=== PATIENT | male | born 1925 | race Caucasian/White ===

== ENCOUNTER 2016-12-23 18:20 | Inpatient (IN) | payer MEDICARE, BC ==
[~2016-12-23] VITALS: Ht 165.1 cm; Wt 45.5 kg
[~2016-12-23 18:20] MED LIST: ALBU8.5H3 INH; FINA5TAB2 PO; METO50TA5 PO; ONDA4TAB4 PO; OXYC15TA50 PO; TAMS-1 PO
[2016-12-23 18:37] VITALS: Ht 165.1 cm; Wt 45.5 kg
--- OUTSIDE RECORDS SUMMARY | 2016-12-23 18:43 | XMS REPORT | CCD ---
Author Author LYLY POP Organization Unknown Address [address], [place] [id number] Phone 0 Care Team Providers Care Marketing Data Specialist Name Role Phone ELVIRA QUINN Attending Physician [phone] TIFFANY Ibarra Nurse Assisstant 0 Vital Signs Unknown or Not Available. Allergies Allergy Code Allergy Type Reaction Status HYDROCHLOROTHIAZIDE 5487 Drug allergy Active NORFLEX 414176 Drug allergy Active LEVAQUIN LEVA-ETHEL 0 Drug allergy Active INFLUENZA VIRUS VACCINE 5806 Drug allergy Active VALACYCLOVIR 85579 Drug allergy Active PENICILLIN 86775 Drug allergy HIVES Active DOXYCYCLINE 3640 Drug allergy Active Procedures Unknown or Not Available. 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 Active Medications Medication Code Dose Units Frequency Route Modification Start Date/Time Albuterol Sulfate 0.083% Inhalation Solution 021095 1 EACH every 4 hrs as needed INHALATION 2015 14:25 Prescription Detail 1 EACH INHALATION every 4 hrs as needed Calcitriol 0.25MCG Oral Capsule, Liquid Filled 615453 0.25 MCG DAILY ORAL 02/05/2016 14:25 Prescription Detail 0.25 MCG ORAL DAILY Calcium Acetate 667 MG Oral Tablet 184448 7377 MG 3 TIMES DAILY WITH MEALS ORAL 02/05/2016 14:25 Prescription Detail 1334 MG ORAL 3 TIMES DAILY WITH MEALS Cyanocobalamin 1000MCG/1ML Intramuscular Solution 937678 1 EACH Q 30 DAYS, NEXT DUE 02/07/16 INTRAMUSCULAR 02/05/2016 14:25 Prescription Detail 1 EACH INTRAMUSCULAR Q 30 DAYS, NEXT DUE 02/07/16 Famotidine 10MG Oral Tablet 575808 10 MILLIGRAMS AT BEDTIME ORAL 02/05/2016 14:25 Prescription Detail 10 MILLIGRAMS ORAL AT BEDTIME Flomax 0.4MG Oral Capsule 523802 0.4 MILLIGRAMS DAILY AFTER DINNER ORAL 02/05/2016 14:25 Prescription Detail 0.4 MILLIGRAMS ORAL DAILY AFTER DINNER hydrALAZINE HCl 25MG Oral Tablet 573696 25 MILLIGRAMS THREE TIMES DAILY ORAL 02/05/2016 14:25 Prescription Detail 25 MILLIGRAMS ORAL THREE TIMES DAILY Ipratropium [place]-Albuterol Sulfate 0.5MG/3ML-3MG/3ML Inhalation Solution 4404968 1 EACH EVERY 4 HRS NEEDED INHALATION 02/05/2016 14:25 Prescription Detail 1 EACH INHALATION EVERY 4 HRS NEEDED Metoprolol Tartrate 50MG Oral Tablet 427496 50 MILLIGRAMS TWICE A DAY ORAL 02/05/2016 14:25 Prescription Detail 50 MILLIGRAMS ORAL TWICE A DAY Proscar 5MG Oral Tablet 437958 5 MILLIGRAMS AT BEDTIME ORAL 02/05/2016 14:25 Prescription Detail 5 MILLIGRAMS ORAL AT BEDTIME Senokot 8.6MG Oral Tablet 242523 8.6 MILLIGRAMS NEEDED ORAL 02/05/2016 14:25 Prescription Detail 8.6 MILLIGRAMS ORAL NEEDED Uloric 40MG Oral Tablet 004177 40 MILLIGRAMS DAILY ORAL 02/05/2016 14:25 Prescription Detail 40 MILLIGRAMS ORAL DAILY Acetaminophen 500MG Oral Tablet 691153 500 MILLIGRAMS EVERY FOUR HOURS NEEDED BY MOUTH For Pain 14:20 Prescription Detail TAKE 500 MILLIGRAMS BY MOUTH EVERY FOUR HOURS NEEDED For Pain amLODIPine Besylate 5MG Oral Tablet 722066 10 MILLIGRAMS QD BY MOUTH 02/05/2016 14:18 Prescription Detail TAKE 10 MILLIGRAMS BY MOUTH QD GaviLAX 17GM/1Dose Oral Powder for Solution 484495 17 GRAM QD ORAL 02/05/2016 14:18 Prescription Detail 17 GRAM ORAL QD K-Tab 10MEQ Oral Tablet, Extended Release 642116 10 MILLIEQUIVALENT DAILY BY MOUTH 02/05/2016 14:17 Prescription Detail TAKE 10 MILLIEQUIVALENT BY MOUTH DAILY Magnesium Oxide 400MG Oral Tablet 231553 400 MILLIGRAMS TWICE A DAY BY MOUTH 02/05/2016 14:17 Prescription Detail TAKE 400 MILLIGRAMS BY MOUTH TWICE A DAY Nitrostat 0.4MG Sublingual Tablet 001665 0.4 MILLIGRAMS NEEDED SUBLINGUAL 02/05/2016 14:[address] 0.4 MILLIGRAMS SUBLINGUAL NEEDED Zofran 4MG Oral Tablet, Disintegrating 728783 4 TABLET PRN Q6H BY MOUTH 02/05/2016 14:17 Prescription Detail TAKE 4 TABLET BY MOUTH PRN Q6H Symbicort 80MCG/Actuation-4.5M Inhalation Aerosol Liquid 7187833 2 Puffs TWICE A DAY Inhale 2012 10:02 Prescription Detail Inhale 2 Puffs Inhale TWICE A DAY Medications Administered During Visit Unknown or Not Available. Encounters Unknown or Not Available. Social History Smoking Status Code Start Date End Date Former smoker 0210253 Patient Decision Aids Unknown or Not Available. Discharge Instructions You were admitted to [facility] on 11/29/2016 13:52 You were discharged from [facility] Should you have any questions prior to discharge, please contact a member of your healthcare team. If you have left the hospital and have any questions, please contact your primary care physician. Chief Complaint and Reason For Visit Chief Complaint Date of Onset RECURRING OP 11/29/2016 Function Status Unknown or Not Available. Plan of Care Unknown or Not Available. Referral/Transition of Care Unknown or Not Available.
--- OUTSIDE RECORDS SUMMARY | 2016-12-23 18:43 | XMS REPORT | Continuity of Care Document ---
Author Author [facility] Organization [facility] Address Unknown Phone Unavailable Support Name Relationship Address Phone JUNO HERNANDEZ MD Caregiver [address] [place] [address] [place] [address] Unavailable WALLY RODRIGUEZ "MAI" Caregiver [address] [place] [address] Unavailable BERNARD VALENZUELA Next Of Kin [address] [place] [address] Insurance Providers Guarantor Carolyn Valenzuela Address [address] [place] [address] Email DENIED/NO TO PT PORTAL [facility] Policy Number [id number] Subscriber's Name BiancaCarolyn Mu Relationship 18 Self Group Number [id number] Payer Medicare Policy Number [id number] Subscriber's Name BiancaCarolyn Dobbins Relationship 18 Self Advance Directives Directive Response Recorded Date/Time Ordered Resuscitation Status Full Code 09/30/16 3:55pm Resuscitation Documents on File No 10/01/16 8:53am DPOA for Healthcare Only No 10/01/16 8:53am Living Will No 10/01/16 8:53am Problems Active Problems Medical Problem Onset Date Status Gross hematuria 01/11/2015 Acute Renal mass 01/11/2015 Acute Medications Current Home Medications Medication Dose Units Route Directions Days Qty Instructions Start Date Albuterol Sulfate 2.5 Mg/3 Ml Vial.neb 2.5 Mg Aerosol Tx. As Needed for Asthma 01/09/15 Albuterol Sulfate (Albuterol Sulfate Hfa) 8.5 Gm Hfa.aer.ad 2 Puff Inhalation Every 4 Hours 01/09/15 Amlodipine Besylate (Norvasc) 10 Mg Tablet 10 Mg Oral Daily 09/30 Budesonide/Formoterol Fumarate (Symbicort 160-4.5 Mcg Inhaler) 10.2 Gm Hfa.aer.ad 2 Puff Oral Twice A Day 01/09/15 Famotidine 10 Mg Tablet 1 Tab Oral Bedtime 09/30/16 Finasteride (Proscar) 5 Mg Tablet 1 Tab Oral Daily 09/30/16 Metoprolol Tartrate 50 Mg Tablet 50 Mg Oral Twice Daily With Meals Take 1 tablet, by mouth, 2 times a day with meals. 09/30/16 Ondansetron Hcl (Zofran) 4 Mg Tablet 4 Mg Oral Every 8 Hours Oxycodone Hcl (Oxycontin) 10 Mg Tab.er.12h 10 Mg Oral Three Times A Day 09/30/16 Oxycodone Hcl 15 Mg Tablet 15 Mg Oral Every 4 Hours Prn 09/30/16 Tamsulosin Hcl (Flomax) 0.4 Mg Capsule 0.4 Mg Oral Bedtime Past Home Medications Medication Directions Ordered Status Aspirin (Aspir 81) 81 Mg Tablet., 1 Tab Oral Daily 01/09/15 Discontinued Social History Social History Problem Response Recorded Date/Time Onset Date Status Reason for Hospitalization place a port 10/01/2016 11:42am Not Applicable Not Applicable Hx Alcohol Use No 10/01/2016 8:55am Not Applicable Not Applicable Has the pt used tobacco in the last 12 months No 10/01/2016 8:55am Not Applicable Not Applicable Query Response Start Date Stop Date Smoking Status Former smoker Hospital Discharge Instructions Instructions: Care Instructions: I was in the hospital because (patient own words): PORT PLACEMENT Discharge Diet: Resume Regular diet (See patient instructions below) Discharge Activity: You may resume your usual activity. Follow Up Appointments: Follow up with Oncology as scheduled. - You do not need a specific appointment to see Dr. Hernandez since oncology will be following your Port-a-Cath. - You may call Dr. Hernandez's office at [phone] if you have any concerns. Pending Lab / Results: No Pending Lab Patient Instructions: Do not drive, operate machinery, drink alcohol, or sign important papers for 24 hours or while taking pain pills. You may resume your usual diet. Start with a bland diet in case you have nausea or vomiting. Expected Signs/Symptoms: Expect some pain at your incision sites. You may have some nausea/vomiting after your anesthetic or with pain pills taken on an empty stomach. Notify Physician If: Contact Dr. Hernandez if any of the following occur: - Your pain is not adequately controlled. - You have persistent nausea or vomiting for more than 24 hours. - You have a fever over 101 degrees. - You develop redness, swelling, increasing pain, excessive bleeding, or excessive/foul smelling drainage from one of your incision sites. - You have pain and/or swelling in your feet, calves, or legs. - You have difficulty breathing, abnormal cough, or chest pain. During Business Hours:: *In the event of an emergency, call 911 or seek medical care at the nearest emergency room* During office hours, call Dr. Hernandez's office at [phone]. After Business Hours:: After hours, please call [facility] at [phone] and have the vulcanized fiber unit operator page Dr. Hernandez or the covering surgeon. Pain Management/Treatment: You should not have significant pain following the procedure. For management of your postoperative pain consider the following: - You may take Ibuprofen IN ADDITION TO Tylenol or pain pills for up to 2 weeks unless otherwise instructed by a physician. - You may take regular strength Tylenol (325 mg) INSTEAD OF any pain pill dose. (No more than 10 tablets including pain pills and regular strength Tylenol in a 24 hour period). Wound/Incision Care: Your incisions have been covered with sterile glue. - No bandage is required. - You may shower after 24 hours. - No tub baths or swimming for 2 weeks. Condition at time of discharge: Good Plan of Care Discharge Date 10/01/16 1:20pm Instructions/Education Provided [facility] for Implanted Venous Access Port Prescriptions See Medication Section Functional Status No functional status results. Allergies, Adverse Reactions, Alerts Allergen Type Severity Reaction Status Last Updated Penicillin Allergy Unknown Active 09/30/16 Alprazolam Allergy Unknown Active 09/30/16 Orphenadrine Allergy Unknown Active 09/30/16 Doxycycline Allergy Unknown Active 09/30/16 Valacyclovir Allergy Unknown Active 09/30/16 flu shot Allergy Unknown Active 01/08/15 Immunizations Query Response on File Recorded Date/Time Hx Influenza Vaccination N refused 10/01/16 8:55am Hx Pneumococcal Vaccination Y 5-6 yrs ago 10/01/16 8:55am Hx Influenza Vaccination N refused 10/01/16 8:55am Vital Signs Acute Vital Signs Vital Response Date/Time Temperature (Fahrenheit) 98.7 deg F (96.8 - 99.1) 10/01/2016 12:00pm Temperature (Calculated Celsius) 37.14752 degrees C (36.0 - 37.3) 10/01/2016 12:00pm Temperature Source Oral 10/01/2016 12:00pm Pulse Rate (adult) 74 bpm (60 - 100) 10/01/2016 1:15pm Respiratory Rate 20 breaths/min (10 - 20) 10/01/2016 1:15pm O2 Sat by Pulse Oximetry 95 % (90 - 100) 10/01/2016 1:15pm Oxygen Delivery Method Room Air 10/01/2016 1:15pm Oxygen Flow Rate 6.00 L/min 10/01/2016 11:24am Blood Pressure 113/57 mm Hg 10/01/2016 1:15pm Blood Pressure Source Automatic Cuff 10/01/2016 1:15pm Height (Feet) 5 feet 10/01/2016 8:32am Height (Inches) 5.00 inches 10/01/2016 8:32am Weight (Kilograms) 54.500 kg 10/01/2016 8:32am Body Mass Index (BMI) 20.0 10/01/2016 8:32am Results Laboratory Results Test Name Result Units Flags Reference Collection Date/Time Result Date/ Time Comments White Blood Count 9.7 T/MM3 4.5-11.0 09/29/2016 8:45am 09/29/2016 8: 50am Red Blood Count 3.55 M/MM3 L 4.50-5.90 09/29/2016 8:45am 09/29/2016 8: 50am Hemoglobin 10.6 GM/DL L 13.5-17.5 09/29/2016 8:45am 09/29/2016 8:50am Hematocrit 33.6 % L 41-53 09/29/2016 8:45am 09/29/2016 8:50am Mean Corpuscular Volume 94.6 UM3 80-100 09/29/2016 8:45am 09/29/2016 8: 50am Mean Corpuscular Hemoglobin 29.9 UUG 26-34 09/29/2016 8:45am 2015 8:50am Mean Corpuscular Hemoglobin Concent 31.5 GM/DL 31-37 09/29/2016 8:45am 09/29/2016 8:50am RDW Standard Deviation 47.0 FL 36.9-50.2 09/29/2016 8:45am 09/29/2016 8 :50am Platelet Count 412 T/MM3 H 130-400 09/29/2016 8:45am 09/29/2016 8:50am Mean Platelet Volume 8.7 UM3 L 9.4-12.4 09/29/2016 8:45am 09/29/2016 8: 50am Neutrophils (%) (Auto) 57.7 % 33-66 09/29/2016 8:45am 09/29/2016 8: 50am Lymphocytes (%) (Auto) 29.4 % 23-45 09/29/2016 8:45am 09/29/2016 8: 50am Monocytes (%) (Auto) 10.3 % H 0-9.0 09/29/2016 8:45am 09/29/2016 8:50am Eosinophils (%) (Auto) 2.0 % 0-4 09/29/2016 8:45am 09/29/2016 8:50am Basophils (%) (Auto) 0.4 % 0-2 09/29/2016 8:45am 09/29/2016 8:50am Immature Granulocyte % (Auto) 0.2 % 0.0-0.5 09/29/2016 8:45am 2015 8:50am Absolute Neutrophils (auto) 5.6 T/MM3 1.8-7.7 09/29/2016 8:45am 2015 8:50am Absolute Lymphocytes (auto) 2.9 T/MM3 1-4.8 09/29/2016 8:45am 2015 8:50am Absolute Monocytes (auto) 1.0 T/MM3 H 0-0.8 09/29/2016 8:45am 2015 8:50am Absolute Eosinophils (auto) 0.2 T/MM3 0-0.5 09/29/2016 8:45am 2015 8:50am Absolute Basophils (auto) 0.0 T/MM3 0-0.2 09/29/2016 8:45am 09/29/2016 8:50am Absolute Immature Granulocyte (auto 0.02 T/MM3 0.00-0.03 09/29/2016 8: 45am 09/29/2016 8:50am Lactate Dehydrogenase 350 U/L 313-618 09/29/2016 8:45am 09/29/2016 9: 38am Magnesium Level 2.1 MG/DL 1.6-2.3 09/29/2016 8:45am 09/29/2016 9:38am Icterus Index < 2 0-7 10/01/2016 8:44am 10/01/2016 9:00am Chemistry Specimen Hemolysis < 15 0-25 10/01/2016 8:44am 10/01/2016 9 :00am 0-25: Specimen Exhibited No Hemolysis. Turbidity < 20 0-20 10/01/2016 8:44am 10/01/2016 9:00am Sodium Level 141 MEQ/L 134-144 10/01/2016 8:44am 10/01/2016 9:00am Potassium Level 3.2 MEQ/L L 3.6-5 10/01/2016 8:44am 10/01/2016 9:00am Chloride Level 99 MEQ/L 98-107 10/01/2016 8:44am 10/01/2016 9:00am Carbon Dioxide Level 27 MEQ/L 22-30 10/01/2016 8:44am 10/01/2016 9: 00am Anion Gap 15 MEQ/L 5-15 10/01/2016 8:44am 10/01/2016 9:00am Blood Urea Nitrogen 16.0 MG/DL 9-10/01/2016 8:44am 10/01/2016 9: 00am Creatinine 1.1 MG/DL 0.8-1.5 10/01/2016 8:44am 10/01/2016 9:00am BUN/Creatinine Ratio 15 RATIO 6-26 10/01/2016 8:44am 10/01/2016 9:00am Glomerular Filtration Rate Calc 63 10/01/2016 8:44am 10/01/2016 9: 00am Glucose Level 95 MG/DL 75-110 10/01/2016 8:44am 10/01/2016 9:00am Calculated Osmolality 272 MOSM/KG 261-280 10/01/2016 8:44am 10/01/2016 9:00am Calcium Level 8.2 MG/DL L 8.4-10.2 10/01/2016 8:44am 10/01/2016 9:00am Total Bilirubin 0.50 MG/DL 0.20-1.30 10/01/2016 8:44am 10/01/2016 9: 00am Alkaline Phosphatase 65 U/L 38-126 10/01/2016 8:44am 10/01/2016 9:00am Total Protein 6.4 G/DL 6.3-8.2 10/01/2016 8:44am 10/01/2016 9:00am Albumin 3.4 G/DL L 3.5-5.0 10/01/2016 8:44am 10/01/2016 9:00am Globulin 3.0 G/DL 2.4-3.6 10/01/2016 8:44am 10/01/2016 9:00am Albumin/Globulin Ratio 1.1 RATIO 1.1-2.2 10/01/2016 8:44am 10/01/2016 9 :00am Aspartate Amino Transf (AST/SGOT) 16 U/L L 17-59 10/01/2016 8:44am 10/01 9:00am Alanine Aminotransferase (ALT/SGPT) 27 U/L 21-72 10/01/2016 8:44am 9:00am Name: CAROLYN VALENZUELA Unit #: [id number] : 1925 Sex: M Admit Date: Loc / Svc: SCU Discharge Date: DIAGNOSTIC IMAGING REPORT Report #: [id number] [facility] NADJA Burnett Indication: ITS.REASON: POWERPORT INSERTION PROCEDURE: RF PORTACATH W FLUORO WO CXR: Encounter: Initial Comparison: No prior films were available for comparison at the time of this interpretation. A right-sided IJ Port-A-Cath was placed under fluoroscopic guidance. Fluoroscopy time was not indicated. Three fluoroscopic spot films were submitted for review. The distal tip of the Port-A-Cath appears to be projected over the distal SVC on the fluoroscopic spot film submitted for review. Findings: Status post right-sided IJ Port-A-Cath placement under fluoroscopic guidance as described above. Recommend plain film follow-up to confirm satisfactory position. . Procedures Procedure Status Date Provider(s) ROUTINE VENIPUNCTURE Completed 09/01/16 COMPREHEN METABOLIC PANEL Completed 09/01/16 LACTATE (LD) (LDH) ENZYME Completed 09/01/16 ASSAY OF MAGNESIUM Completed 09/01/16 COMPLETE CBC W/AUTO DIFF WBC Completed 09/01/16 PET IMAGE W/CT SKULL-THIGH Completed 09/17/16 [id number]"FLUORODEOXYGLUCOSE F-18 FDG, DIAGNOSTIC, PER STUDY DO Completed ROUTINE VENIPUNCTURE Completed 09/22/16 COMPREHEN METABOLIC PANEL Completed 09/22/16 LACTATE (LD) (LDH) ENZYME Completed 09/22/16 ASSAY OF MAGNESIUM Completed 09/22/16 COMPLETE CBC W/AUTO DIFF WBC Completed 09/22/16 Insertion of vascular catheter Completed 10/01/16 JUNO HERNANDEZ MD Encounters Encounter Location Arrival/Admit Date Discharge/Depart Date Attending Provider Departed [facility] Day [facility] 10/01/16 8:18am 10/01/16 1: 20pm JUNO HERNANDEZ MD Registered [facility] 09/29/16 8:23am ELVIRA QUINN Registered [facility] 09/25/16 3:24pm FAVIAN STEWART MD Registered [facility] 09/22/16 2:59pm ELVIRA QUINN [facility] 09/17/16 7:17am ELVIRA QUINN [facility] 09/01/16 11:04am ELVIRA QUINN
--- OUTSIDE RECORDS SUMMARY | 2016-12-23 18:44 | XMS REPORT | Continuity of Care Document ---
Author Author [facility] Organization [facility] Address Unknown Phone Unavailable Allergies Active Description Code Type Severity Reaction Onset Reported/Identified Relationship to Patient Clinical Status Yes alprazolam alprazolam Drug Allergy Unknown N/A 09/05/2009 Yes Benzodiazepines Benzodiazepines Drug Allergy Unknown N/A 09/05/2009 Yes Betalactams Betalactams Drug Allergy Unknown N/A 09/05/2009 Yes Penicillins Penicillins Drug Allergy Unknown N/A 09/05/2009 Yes alprazolam alprazolam Drug Allergy Unknown NONE 01/25/2016 Yes Benzodiazepines Benzodiazepines Drug Allergy Unknown NONE 01/25/2016 Yes Betalactams Betalactams Drug Allergy Unknown NONE 01/25/2016 Yes Penicillins Penicillins Drug Allergy Unknown NONE 01/25/2016 Medications Problems Date Dx Coded Attending Type Code Diagnosis Diagnosed By 05/16/2015 LAKSHMI SEWELL 1890 MALIG NEOPL KIDNEY 05/16/2015 LAKSHMI SEWELL 2859 ANEMIA NOS 05/16/2015 LAKSHMI SEWELL 99298 ANXIETY STATE NOS 05/16/2015 LAKSHMI SEWELL 311 DEPRESSIVE DISORDER NEC 05/16/2015 LAKSHMI SEWELL 50521 ACUTE POSTOP PAIN NEC 05/16/2015 LAKSHMI SEWELL 4019 HYPERTENSION NOS 05/16/2015 LAKSHMI SEWELL 13191 CORONARY ATHEROSCLEROSIS 05/16/2015 LAKSHMI SEWELL 06993 ATRIAL FIBRILLATION 05/16/2015 LAKSHMI SEWELL 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 05/16/2015 LAKSHMI SEWELL 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 05/16/2015 LAKSHMI SEWELL 14795 HYPOXEMIA 01/21/2016 Yuniel Avelar DO C64.9 MALIGNANT NEOPLASM OF UNSP KIDNEY, EXCEPT RENAL PE 01/21/2016 Yuniel Avealr DO 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 WITHOUT 01/21/2016 Yuniel Avelar DO E83.39 OTHER DISORDERS OF PHOSPHORUS METABOLISM 01/21/2016 Yuniel Avelar DO E83.41 HYPERMAGNESEMIA 01/21/2016 Yuniel Avelar DO E87.2 ACIDOSIS 01/21/2016 Yuniel Avelar DO E87.5 HYPERKALEMIA 01/21/2016 Yuniel Avelar DO F05 DELIRIUM DUE TO KNOWN PHYSIOLOGICAL CONDITION 01/21/2016 Yuniel Avelar DO G93.41 METABOLIC ENCEPHALOPATHY 01/21/2016 Yuniel Avelar DO 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 01/21/2016 Yuniel Avelar DO 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 01/21/2016 Yuniel Avelar DO J44.9 CHRONIC OBSTRUCTIVE PULMONARY DISEASE, UNSPECIFIED 01/21/2016 Yuniel Avelar DO J96.01 ACUTE RESPIRATORY FAILURE WITH HYPOXIA 01/21/2016 Yuniel Avelar DO K21.9 GASTRO-ESOPHAGEAL REFLUX DISEASE WITHOUT ESOPHAGIT 01/21/2016 Yuniel Avelar DO 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 01/21/2016 Yuniel Avelar DO N17.0 ACUTE KIDNEY FAILURE WITH TUBULAR NECROSIS 01/21/2016 Yuniel Avelar DO N17.9 ACUTE KIDNEY FAILURE, UNSPECIFIED 01/21/2016 Yuniel Avelar DO N18.2 CHRONIC KIDNEY DISEASE, STAGE 2 (MILD) 01/21/2016 Yuinel Avelar DO 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 01/21/2016 Yuniel Avelar DO N40.0 ENLARGED PROSTATE WITHOUT LOWER URINARY TRACT SYMP 01/21/2016 Yuniel Avelar DO T50.8X5A ADVERSE EFFECT OF DIAGNOSTIC AGENTS, INITIAL ENCOU 01/21/2016 Yuniel Avelar DO Z66 DO NOT RESUSCITATE 01/21/2016 Yuniel Avelar DO Z87.891 PERSONAL HISTORY OF NICOTINE DEPENDENCE 01/21/2016 Yuniel Avelar DO Z88.0 ALLERGY STATUS TO PENICILLIN 09/18/2016 Helio BOWLING, Shashi Ash D64.9 ANEMIA, UNSPECIFIED 09/18/2016 Shashi Cadet MD I10 ESSENTIAL (PRIMARY) HYPERTENSION 09/18/2016 Shashi Cadet MD J44.9 CHRONIC OBSTRUCTIVE PULMONARY DISEASE, UNSPECIFIED 09/18/2016 Shashi Cadet MD J96.10 CHRONIC RESPIRATORY FAILURE, UNSP W HYPOXIA OR HYP 09/18/2016 Shashi Cadet MD K21.9 GASTRO-ESOPHAGEAL REFLUX DISEASE WITHOUT ESOPHAGIT 09/18/2016 Shashi Cadet MD K22.2 ESOPHAGEAL OBSTRUCTION 09/18/2016 Shashi Cadet MD K31.89 OTHER DISEASES OF STOMACH AND DUODENUM 09/18/2016 Shashi Cadet MD 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 09/18/2016 Shashi Cadet MD K83.8 OTHER SPECIFIED DISEASES OF BILIARY TRACT 09/18/2016 Shashi Cadet MD M48.00 SPINAL STENOSIS, SITE UNSPECIFIED 09/18/2016 Shashi Cadet MD N40.0 BENIGN PROSTATIC HYPERPLASIA WITHOUT LOWER URINRY 09/18/2016 Shashi Cadet MD R10.9 UNSPECIFIED ABDOMINAL PAIN 09/18/2016 Shashi Cadet MD Z85.528 PERSONAL HISTORY OF OTHER MALIGNANT NEOPLASM OF KI 09/18/2016 Shashi Cadet MD Z88.0 ALLERGY STATUS TO PENICILLIN 09/18/2016 Shashi Cadet MD Z88.8 ALLERGY STATUS TO OTH DRUG/MEDS/BIOL SUBST STATUS 09/18/2016 Shashi Cadet MD Z90.5 ACQUIRED ABSENCE OF KIDNEY Procedures Code Description [place] 05/03/2015 [id number] INSERTION OF ENDOTRACHEAL AIRWAY INTO TRACHEA, VIA Valentino LEONE, Yuniel A 01/21/2016 [id number] RESPIRATORY VENTILATION, LESS THAN 24 CONSECUTIVE Avelar DO, Yuniel A 01/21/2016 [id number] EXCISION OF DUODENUM, ENDO, DIAGN Tommy BOWLING, Chandler Iverson 09/18/2016 Results Test Result Range CBC W/DIFF - 01/21/16 00:00 EOSINOPHIL # 0.1 k/cumm 0.1-0.5 EOSINOPHIL % 1 % 2-4 GRANULOCYTE # 7.2 k/cumm 2.0-9.0 GRANULOCYTE % 59 % 50-75 LYMPHOCYTE # 3.5 k/cumm 1.0-4.0 LYMPHOCYTE % 29 % 20-30 MEAN CELL HGB 30.6 pg 27.0-33.0 MEAN CELL HGB CONCENTRATION 33.7 g/dL 32.0-37.0 MEAN CELL VOLUME 90.7 fl 80.0-100.0 MONOCYTE # 1.3 k/cumm 0.1-1.0 MONOCYTE % 11 % 4-6 RED BLOOD CELL 3.86 m/cumm 4.00-6.00 RED CELL DISTRIBUTION WIDTH 13.3 % 11.0- 15.6 WHITE BLOOD CELL 12.1 k/cumm 5.0-10.0 HEMOGLOBIN 11.8 gm/dL 14.0-18.0 HEMATOCRIT 35.0 % 40.0-54.0 PLATELET COUNT 432 k/cumm 150-400 METABOLIC PANEL, COMPREHN - 01/21/16 00:00 POTASSIUM 5.3 mmol/L 3.5-5.3 EST GFR (MDRD) < 10 mL/min > 59 ANION GAP 13 mmol/L 5-15 GLUCOSE 15 mg/dL 70-99 CALCIUM 8.3 mg/dL 8.5-10.1 BLOOD UREA NITROGEN 83 mg/dL 7-20 CREATININE 16.0 mg/dL 0.7-1.3 SODIUM 133 mmol/L 135-148 CHLORIDE 98 mmol/L 98-110 AST/SGOT 24 Units/L 10-37 ALT/SGPT 23 Units/L < 66 CARBON DIOXIDE 22 mmol/L 21-32 TOTAL PROTEIN 6.8 gm/dL 6.4-8.2 ALBUMIN 3.4 gm/dL 3.4-5.0 BILI TOTAL 0.4 mg/dL 0.0-1.0 ALKALINE PHOSPHATASE TOTAL 56 IU/L 45- 117 PHOSPHORUS - 01/21/16 00:00 PHOSPHORUS 8.0 mg/dL 2.5-4.9 MAGNESIUM - 01/21/16 00:00 MAGNESIUM 3.0 mg/dL 1.8-2.4 THYROID STIM HORMONE (TSH) - 01/21/16 00:00 THYROID STIM HORMONE (TSH) 1.78 uIU/mL 0.34-4.82 TROPONIN I - 01/21/16 00:00 TROPONIN I 0.50 ng/mL < 0.07 ARTERIAL BLOOD GAS - 01/21/16 21:10 ABG BASE EXCESS -7.3 meq/L -3.0-3.0 ABG BICARBONATE 17.9 meq/L 23.0-28.0 ABG PCO2 36 mm Hg 34-45 ABG PH 7.32 7.35-7.45 ABG PO2 108 mm Hg 75-100 ABG O2 SATURATION 98 % 93-100 CALCIUM IONIZED - 01/21/16 21:10 CALCIUM IONIZED 4.3 mg/dL 4.5-5.3 LACTIC ACID - 01/21/16 21:10 LACTIC ACID 1.0 mmol/L 0.5-2.0 GLUCOSE (POC) - 01/21/16 22:35 GLUCOSE (POC) 319 mg/dL 70-99 UR CREATININE - 01/22/16 01:04 UR CREATININE COMMENT RANDOM UR CREATININE LEVEL 53.8 mg/dL 44-467 UR SODIUM - 01/22/16 01:04 UR SODIUM COMMENT RANDOM UR SODIUM LEVEL 57 mmol/L 20-40 URINALYSIS, ROUTINE - 01/22/16 01:04 UA LEUKOCYTE ESTERASE DIPSTICK NEGATIVE NEGATIVE UA NITRITE DIPSTICK NEGATIVE NEGATIVE UA PROTEIN DIPSTICK TRACE NEGATIVE UA GLUCOSE DIPSTICK NEGATIVE NEGATIVE UA KETONE DIPSTICK NEGATIVE NEGATIVE UA UROBILINOGEN DIPSTICK NORMAL NORMAL UA BILIRUBIN DIPSTICK NEGATIVE NEGATIVE UA BLOOD DIPSTICK 4+ NEGATIVE UA SPECIFIC GRAVITY 1.007 1.015-1.025 UR PH 6.0 5.0-7.0 UA MICROSCOPIC - 01/22/16 01:04 UA AMORPHOUS SEDIMENT 2+ UA RBC 5-10 rbc/hpf 0 - 3 UA VOLUME FOR EXAM 12.0 mL (12mL STD) UA WBC 0 wbc/hpf 0 - 5 UR DRUGS OF ABUSE SCREEN - 01/22/16 01:04 UR AMPHETAMINES SCREEN NEG (<1000 ng/mL) NEGATIVE UR BARBITURATE SCREEN NEG (< 200 ng/mL) NEGATIVE DRUGS OF ABUSE SCREEN COMMENT UR OPIATES SCREEN NEG (< 300 ng/mL) NEGATIVE UR PHENCYCLIDINE (PCP) SCREEN NEG (< 25 ng/mL) NEGATIVE UR CANNABINOIDS (THC) SCREEN NEG (< 50 ng/mL) NEGATIVE UR COCAINE METABOLITE SCREEN NEG (< 300 ng/mL) NEGATIVE UR METHADONE SCREEN NEG (< 300 ng/mL) NEGATIVE UR BENZODIAZEPINE SCREEN NEG (< 200 ng/mL) NEGATIVE ARTERIAL BLOOD GAS - 01/22/16 02:53 ABG BASE EXCESS -8.0 meq/L -3.0-3.0 ABG FIO2 50 % ABG BICARBONATE 17.8 meq/L 23.0-28.0 ABG PCO2 38 mm Hg 34-45 ABG PEEP 5 CM ABG PH 7.29 7.35-7.45 ABG PO2 251 mm Hg 75-100 ABG O2 SATURATION 99 % 93-100 LACTIC ACID - 01/22/16 02:53 LACTIC ACID 1.3 mmol/L 0.5-2.0 CBC W/DIFF - 01/22/16 02:53 EOSINOPHIL # 0.1 k/cumm 0.1-0.5 EOSINOPHIL % 1 % 2-4 GRANULOCYTE # 8.5 k/cumm 2.0-9.0 GRANULOCYTE % 78 % 50-75 LYMPHOCYTE # 0.7 k/cumm 1.0-4.0 LYMPHOCYTE % 6 % 20-30 MEAN CELL HGB 31.0 pg 27.0-33.0 MEAN CELL HGB CONCENTRATION 34.1 g/dL 32.0-37.0 MEAN CELL VOLUME 90.8 fl 80.0-100.0 MONOCYTE # 1.7 k/cumm 0.1-1.0 MONOCYTE % 16 % 4-6 RED BLOOD CELL 3.26 m/cumm 4.00-6.00 RED CELL DISTRIBUTION WIDTH 13.1 % 11.0- 15.6 WHITE BLOOD CELL 10.9 k/cumm 5.0-10.0 HEMOGLOBIN 10.1 gm/dL 14.0-18.0 HEMATOCRIT 29.6 % 40.0-54.0 PLATELET COUNT 285 k/cumm 150-400 METABOLIC PANEL, COMPREHN - 01/22/16 02:54 POTASSIUM 5.1 mmol/L 3.5-5.3 EST GFR (MDRD) < 10 mL/min > 59 ANION GAP 18 mmol/L 5-15 EST CrCl (CG) < 10 mL/min > 59 GLUCOSE 60 mg/dL 70-99 CALCIUM 8.1 mg/dL 8.5-10.1 BLOOD UREA NITROGEN 86 mg/dL 7-20 CREATININE 16.0 mg/dL 0.7-1.3 SODIUM 134 mmol/L 135-148 CHLORIDE 98 mmol/L 98-110 AST/SGOT 21 Units/L 10-37 ALT/SGPT 19 Units/L < 66 CARBON DIOXIDE 18 mmol/L 21-32 TOTAL PROTEIN 5.7 gm/dL 6.4-8.2 ALBUMIN 2.7 gm/dL 3.4-5.0 BILI TOTAL 0.4 mg/dL 0.0-1.0 ALKALINE PHOSPHATASE TOTAL 49 IU/L 45- 117 CREATINE KINASE (CK/CPK) - 01/22/16 02:54 CREATINE KINASE (CK/CPK) 270 Units/L < 309 URIC ACID - 01/22/16 02:54 URIC ACID 9.7 mg/dL 3.5-7.2 GLUCOSE (POC) - 01/22/16 05:09 GLUCOSE (POC) 93 mg/dL 70-99 TROPONIN I - 01/22/16 07:49 TROPONIN I 0.43 ng/mL < 0.07 TRIGLYCERIDES - 01/22/16 07:49 TRIGLYCERIDES 48 mg/dL < 150 GLUCOSE (POC) - 01/22/16 07:52 GLUCOSE (POC) 112 mg/dL 70-99 ARTERIAL BLOOD GAS - 01/22/16 10:31 ABG BASE EXCESS -7.1 meq/L -3.0-3.0 ABG FIO2 30 % ABG BICARBONATE 15.5 meq/L 23.0-28.0 ABG PCO2 23 mm Hg 34-45 ABG PH 7.45 7.35-7.45 ABG PO2 140 mm Hg 75-100 ABG VENT RATE 20 ABG O2 SATURATION 98 % 93-100 ABG TEMPERATURE 36.4 C GLUCOSE (POC) - 01/22/16 10:33 GLUCOSE (POC) 110 mg/dL 70-99 TROPONIN I - 01/22/16 14:14 TROPONIN I 0.31 ng/mL < 0.07 TROPONIN I - 01/22/16 21:01 TROPONIN I 0.23 ng/mL < 0.07 GLUCOSE (POC) - 01/22/16 21:05 GLUCOSE (POC) 116 mg/dL 70-99 GLUCOSE (POC) - 01/23/16 03:27 GLUCOSE (POC) 116 mg/dL 70-99 CBC W/DIFF - 01/23/16 05:10 EOSINOPHIL # 0.1 k/cumm 0.1-0.5 EOSINOPHIL % 2 % 2-4 GRANULOCYTE # 5.8 k/cumm 2.0-9.0 GRANULOCYTE % 65 % 50-75 LYMPHOCYTE # 1.9 k/cumm 1.0-4.0 LYMPHOCYTE % 22 % 20-30 MEAN CELL HGB 30.5 pg 27.0-33.0 MEAN CELL HGB CONCENTRATION 33.7 g/dL 32.0-37.0 MEAN CELL VOLUME 90.7 fl 80.0-100.0 MONOCYTE # 1.0 k/cumm 0.1-1.0 MONOCYTE % 11 % 4-6 RED BLOOD CELL 3.44 m/cumm 4.00-6.00 RED CELL DISTRIBUTION WIDTH 13.5 % 11.0- 15.6 WHITE BLOOD CELL 8.8 k/cumm 5.0-10.0 HEMOGLOBIN 10.5 gm/dL 14.0-18.0 HEMATOCRIT 31.2 % 40.0-54.0 PLATELET COUNT 319 k/cumm 150-400 RENAL FUNCTION PANEL - 01/23/16 05:10 POTASSIUM 5.2 mmol/L 3.5-5.3 EST GFR (MDRD) < 10 mL/min > 59 ANION GAP 13 mmol/L 5-15 EST CrCl (CG) < 10 mL/min > 59 GLUCOSE 106 mg/dL 70-99 CALCIUM 7.1 mg/dL 8.5-10.1 BLOOD UREA NITROGEN 76 mg/dL 7-20 CREATININE 14.8 mg/dL 0.7-1.3 SODIUM 138 mmol/L 135-148 CHLORIDE 104 mmol/L 98-110 CARBON DIOXIDE 21 mmol/L 21-32 ALBUMIN 2.7 gm/dL 3.4-5.0 PHOSPHORUS 7.4 mg/dL 2.5-4.9 URIC ACID - 01/23/16 05:10 URIC ACID 9.1 mg/dL 3.5-7.2 CREATINE KINASE (CK/CPK) - 01/23/16 05:10 CREATINE KINASE (CK/CPK) 188 Units/L < 309 PARATHYROID HORMONE (INTACT) - 01/23/16 05:10 PARATHYROID HORMONE (INTACT) 262 pg/mL 14 -85 GLUCOSE (POC) - 01/23/16 12:35 GLUCOSE (POC) 136 mg/dL 70-99 GLUCOSE (POC) - 01/23/16 17:16 GLUCOSE (POC) 104 mg/dL 70-99 RENAL FUNCTION PANEL - 01/24/16 05:43 POTASSIUM 4.8 mmol/L 3.5-5.3 EST GFR (MDRD) < 10 mL/min > 59 ANION GAP 10 mmol/L 5-15 EST CrCl (CG) < 10 mL/min > 59 GLUCOSE 104 mg/dL 70-99 CALCIUM 6.7 mg/dL 8.5-10.1 BLOOD UREA NITROGEN 69 mg/dL 7-20 CREATININE 13.6 mg/dL 0.7-1.3 SODIUM 139 mmol/L 135-148 CHLORIDE 103 mmol/L 98-110 CARBON DIOXIDE 26 mmol/L 21-32 ALBUMIN 2.6 gm/dL 3.4-5.0 PHOSPHORUS 6.8 mg/dL 2.5-4.9 MAGNESIUM - 01/24/16 05:43 MAGNESIUM 2.3 mg/dL 1.8-2.4 CBC W/DIFF - 01/24/16 07:52 EOSINOPHIL # 0.2 k/cumm 0.1-0.5 EOSINOPHIL % 2 % 2-4 GRANULOCYTE # 6.6 k/cumm 2.0-9.0 GRANULOCYTE % 74 % 50-75 LYMPHOCYTE # 1.3 k/cumm 1.0-4.0 LYMPHOCYTE % 15 % 20-30 MEAN CELL HGB 30.0 pg 27.0-33.0 MEAN CELL HGB CONCENTRATION 33.0 g/dL 32.0-37.0 MEAN CELL VOLUME 90.9 fl 80.0-100.0 MONOCYTE # 0.8 k/cumm 0.1-1.0 MONOCYTE % 9 % 4-6 RED BLOOD CELL 3.30 m/cumm 4.00-6.00 RED CELL DISTRIBUTION WIDTH 13.4 % 11.0- 15.6 WHITE BLOOD CELL 9.0 k/cumm 5.0-10.0 HEMOGLOBIN 9.9 gm/dL 14.0-18.0 HEMATOCRIT 30.0 % 40.0-54.0 PLATELET COUNT 269 k/cumm 150-400 CBC W/DIFF - 01/25/16 05:55 EOSINOPHIL # 0.1 k/cumm 0.1-0.5 EOSINOPHIL % 1 % 2-4 GRANULOCYTE # 6.9 k/cumm 2.0-9.0 GRANULOCYTE % 74 % 50-75 LYMPHOCYTE # 1.5 k/cumm 1.0-4.0 LYMPHOCYTE % 16 % 20-30 MEAN CELL HGB 30.1 pg 27.0-33.0 MEAN CELL HGB CONCENTRATION 32.7 g/dL 32.0-37.0 MEAN CELL VOLUME 92.1 fl 80.0-100.0 MONOCYTE # 0.8 k/cumm 0.1-1.0 MONOCYTE % 8 % 4-6 RED BLOOD CELL 3.29 m/cumm 4.00-6.00 RED CELL DISTRIBUTION WIDTH 13.6 % 11.0- 15.6 WHITE BLOOD CELL 9.4 k/cumm 5.0-10.0 HEMOGLOBIN 9.9 gm/dL 14.0-18.0 HEMATOCRIT 30.3 % 40.0-54.0 PLATELET COUNT 292 k/cumm 150-400 RENAL FUNCTION PANEL - 01/25/16 05:55 POTASSIUM 4.2 mmol/L 3.5-5.3 EST GFR (MDRD) < 10 mL/min > 59 ANION GAP 9 mmol/L 5-15 EST CrCl (CG) < 10 mL/min > 59 GLUCOSE 119 mg/dL 70-99 CALCIUM 6.7 mg/dL 8.5-10.1 BLOOD UREA NITROGEN 61 mg/dL 7-20 CREATININE 12.7 mg/dL 0.7-1.3 SODIUM 139 mmol/L 135-148 CHLORIDE 101 mmol/L 98-110 CARBON DIOXIDE 29 mmol/L 21-32 ALBUMIN 2.6 gm/dL 3.4-5.0 PHOSPHORUS 6.7 mg/dL 2.5-4.9 MAGNESIUM - 01/25/16 05:55 MAGNESIUM 2.1 mg/dL 1.8-2.4 CBC W/DIFF - 01/26/16 05:59 EOSINOPHIL # 0.2 k/cumm 0.1-0.5 EOSINOPHIL % 2 % 2-4 GRANULOCYTE # 6.2 k/cumm 2.0-9.0 GRANULOCYTE % 72 % 50-75 LYMPHOCYTE # 1.5 k/cumm 1.0-4.0 LYMPHOCYTE % 18 % 20-30 MEAN CELL HGB 30.0 pg 27.0-33.0 MEAN CELL HGB CONCENTRATION 32.2 g/dL 32.0-37.0 MEAN CELL VOLUME 93.0 fl 80.0-100.0 MONOCYTE # 0.7 k/cumm 0.1-1.0 MONOCYTE % 8 % 4-6 RED BLOOD CELL 3.30 m/cumm 4.00-6.00 RED CELL DISTRIBUTION WIDTH 13.6 % 11.0- 15.6 WHITE BLOOD CELL 8.6 k/cumm 5.0-10.0 HEMOGLOBIN 9.9 gm/dL 14.0-18.0 HEMATOCRIT 30.7 % 40.0-54.0 PLATELET COUNT 320 k/cumm 150-400 RENAL FUNCTION PANEL - 01/26/16 05:59 POTASSIUM 4.0 mmol/L 3.5-5.3 EST GFR (MDRD) < 10 mL/min > 59 ANION GAP 11 mmol/L 5-15 EST CrCl (CG) < 10 mL/min > 59 GLUCOSE 95 mg/dL 70-99 CALCIUM 6.6 mg/dL 8.5-10.1 BLOOD UREA NITROGEN 59 mg/dL 7-20 CREATININE 11.5 mg/dL 0.7-1.3 SODIUM 141 mmol/L 135-148 CHLORIDE 101 mmol/L 98-110 CARBON DIOXIDE 29 mmol/L 21-32 ALBUMIN 2.6 gm/dL 3.4-5.0 PHOSPHORUS 6.4 mg/dL 2.5-4.9 MAGNESIUM - 01/26/16 05:59 MAGNESIUM 2.1 mg/dL 1.8-2.4 CBC W/DIFF - 01/27/16 07:34 EOSINOPHIL # 0.2 k/cumm 0.1-0.5 EOSINOPHIL % 2 % 2-4 GRANULOCYTE # 5.3 k/cumm 2.0-9.0 GRANULOCYTE % 65 % 50-75 LYMPHOCYTE # 1.9 k/cumm 1.0-4.0 LYMPHOCYTE % 23 % 20-30 MEAN CELL HGB 29.6 pg 27.0-33.0 MEAN CELL HGB CONCENTRATION 31.5 g/dL 32.0-37.0 MEAN CELL VOLUME 94.1 fl 80.0-100.0 MONOCYTE # 0.8 k/cumm 0.1-1.0 MONOCYTE % 9 % 4-6 RED BLOOD CELL 3.24 m/cumm 4.00-6.00 RED CELL DISTRIBUTION WIDTH 13.8 % 11.0- 15.6 WHITE BLOOD CELL 8.2 k/cumm 5.0-10.0 HEMOGLOBIN 9.6 gm/dL 14.0-18.0 HEMATOCRIT 30.5 % 40.0-54.0 PLATELET COUNT 299 k/cumm 150-400 RENAL FUNCTION PANEL - 01/27/16 07:34 POTASSIUM 3.8 mmol/L 3.5-5.3 EST GFR (MDRD) < 10 mL/min > 59 ANION GAP 8 mmol/L 5-15 EST CrCl (CG) < 10 mL/min > 59 GLUCOSE 79 mg/dL 70-99 CALCIUM 7.1 mg/dL 8.5-10.1 BLOOD UREA NITROGEN 57 mg/dL 7-20 CREATININE 10.4 mg/dL 0.7-1.3 SODIUM 141 mmol/L 135-148 CHLORIDE 103 mmol/L 98-110 CARBON DIOXIDE 30 mmol/L 21-32 ALBUMIN 2.3 gm/dL 3.4-5.0 PHOSPHORUS 6.3 mg/dL 2.5-4.9 MAGNESIUM - 01/27/16 07:34 MAGNESIUM 2.0 mg/dL 1.8-2.4 CBC W/DIFF - 01/28/16 05:27 EOSINOPHIL # 0.3 k/cumm 0.1-0.5 EOSINOPHIL % 3 % 2-4 GRANULOCYTE # 5.4 k/cumm 2.0-9.0 GRANULOCYTE % 67 % 50-75 LYMPHOCYTE # 1.5 k/cumm 1.0-4.0 LYMPHOCYTE % 19 % 20-30 MEAN CELL HGB 29.8 pg 27.0-33.0 MEAN CELL HGB CONCENTRATION 31.4 g/dL 32.0-37.0 MEAN CELL VOLUME 94.6 fl 80.0-100.0 MONOCYTE # 0.9 k/cumm 0.1-1.0 MONOCYTE % 11 % 4-6 RED BLOOD CELL 3.36 m/cumm 4.00-6.00 RED CELL DISTRIBUTION WIDTH 13.7 % 11.0- 15.6 WHITE BLOOD CELL 8.1 k/cumm 5.0-10.0 HEMOGLOBIN 10.0 gm/dL 14.0-18.0 HEMATOCRIT 31.8 % 40.0-54.0 PLATELET COUNT 283 k/cumm 150-400 RENAL FUNCTION PANEL - 01/28/16 05:27 POTASSIUM 3.8 mmol/L 3.5-5.3 EST GFR (MDRD) < 10 mL/min > 59 ANION GAP 8 mmol/L 5-15 EST CrCl (CG) < 10 mL/min > 59 GLUCOSE 98 mg/dL 70-99 CALCIUM 7.2 mg/dL 8.5-10.1 BLOOD UREA NITROGEN 53 mg/dL 7-20 CREATININE 9.1 mg/dL 0.7-1.3 SODIUM 138 mmol/L 135-148 CHLORIDE 100 mmol/L 98-110 CARBON DIOXIDE 30 mmol/L 21-32 ALBUMIN 2.5 gm/dL 3.4-5.0 PHOSPHORUS 4.8 mg/dL 2.5-4.9 MAGNESIUM - 01/28/16 05:27 MAGNESIUM 1.9 mg/dL 1.8-2.4 CBC W/DIFF - 01/29/16 04:48 EOSINOPHIL # 0.2 k/cumm 0.1-0.5 EOSINOPHIL % 3 % 2-4 GRANULOCYTE # 4.4 k/cumm 2.0-9.0 GRANULOCYTE % 64 % 50-75 LYMPHOCYTE # 1.4 k/cumm 1.0-4.0 LYMPHOCYTE % 21 % 20-30 MEAN CELL HGB 29.6 pg 27.0-33.0 MEAN CELL HGB CONCENTRATION 31.3 g/dL 32.0-37.0 MEAN CELL VOLUME 94.6 fl 80.0-100.0 MONOCYTE # 0.8 k/cumm 0.1-1.0 MONOCYTE % 12 % 4-6 RED BLOOD CELL 3.31 m/cumm 4.00-6.00 RED CELL DISTRIBUTION WIDTH 13.6 % 11.0- 15.6 WHITE BLOOD CELL 6.9 k/cumm 5.0-10.0 HEMOGLOBIN 9.8 gm/dL 14.0-18.0 HEMATOCRIT 31.3 % 40.0-54.0 PLATELET COUNT 276 k/cumm 150-400 RENAL FUNCTION PANEL - 01/29/16 04:48 POTASSIUM 3.8 mmol/L 3.5-5.3 EST GFR (MDRD) < 10 mL/min > 59 ANION GAP 8 mmol/L 5-15 EST CrCl (CG) < 10 mL/min > 59 GLUCOSE 100 mg/dL 70-99 CALCIUM 7.4 mg/dL 8.5-10.1 BLOOD UREA NITROGEN 49 mg/dL 7-20 CREATININE 8.1 mg/dL 0.7-1.3 SODIUM 141 mmol/L 135-148 CHLORIDE 102 mmol/L 98-110 CARBON DIOXIDE 31 mmol/L 21-32 ALBUMIN 2.5 gm/dL 3.4-5.0 PHOSPHORUS 3.3 mg/dL 2.5-4.9 MAGNESIUM - 01/29/16 04:48 MAGNESIUM 1.8 mg/dL 1.8-2.4 CALCIUM IONIZED - 09/18/16 19:09 CALCIUM IONIZED 3.7 mg/dL 4.5-5.3 CBC W/DIFF - 09/18/16 19:13 EOSINOPHIL # 0.1 k/cumm 0.1-0.5 EOSINOPHIL % 1 % 2-4 GRANULOCYTE # 6.4 k/cumm 2.0-9.0 GRANULOCYTE % 69 % 50-75 LYMPHOCYTE # 1.6 k/cumm 1.0-4.0 LYMPHOCYTE % 18 % 20-30 MEAN CELL HGB 29.2 pg 27.0-33.0 MEAN CELL HGB CONCENTRATION 32.0 g/dL 32.0-37.0 MEAN CELL VOLUME 91.4 fl 80.0-100.0 MONOCYTE # 1.0 k/cumm 0.1-1.0 MONOCYTE % 11 % 4-6 RED BLOOD CELL 3.83 m/cumm 4.00-6.00 RED CELL DISTRIBUTION WIDTH 14.1 % 11.0- 15.6 WHITE BLOOD CELL 9.2 k/cumm 5.0-10.0 HEMOGLOBIN 11.2 gm/dL 14.0-18.0 HEMATOCRIT 35.0 % 40.0-54.0 PLATELET COUNT 431 k/cumm 150-400 HEMOGLOBIN A1C - 09/18/16 19:13 HEMOGLOBIN A1C 6.0 % < 5.7 PROTHROMBIN TIME WITH INR - 09/18/16 19:13 INTERNATIONAL NORMAL RATIO 1.1 0.9-1.1 PROTHROMBIN TIME 12.0 sec 10.0-12.9 PROTHROMBIN TIME WITH INR - 09/18/16 19:13 INTERNATIONAL NORMAL RATIO 1.1 0.9-1.1 PROTHROMBIN TIME 11.9 sec 10.0-12.9 METABOLIC PANEL, COMPREHN - 09/18/16 19:13 POTASSIUM 3.5 mmol/L 3.5-5.3 EST GFR (MDRD) > 60 mL/min > 59 ANION GAP 12 mmol/L 5-15 EST CrCl (CG) 33 mL/min > 59 GLUCOSE 91 mg/dL 70-99 CALCIUM 8.4 mg/dL 8.5-10.1 BLOOD UREA NITROGEN 18 mg/dL 7-20 CREATININE 1.1 mg/dL 0.7-1.3 SODIUM 136 mmol/L 135-148 CHLORIDE 97 mmol/L 98-110 AST/SGOT < 6 Units/L 10-37 ALT/SGPT 12 Units/L < 66 CARBON DIOXIDE 27 mmol/L 21-32 TOTAL PROTEIN 6.9 gm/dL 6.4-8.2 ALBUMIN 2.8 gm/dL 3.4-5.0 BILI TOTAL 0.5 mg/dL 0.0-1.0 ALKALINE PHOSPHATASE TOTAL 48 IU/L 45- 117 PHOSPHORUS - 09/18/16 19:13 PHOSPHORUS 2.6 mg/dL 2.5-4.9 MAGNESIUM - 09/18/16 19:13 MAGNESIUM 2.2 mg/dL 1.8-2.4 T3 FREE - 09/18/16 19:13 T3 FREE 2.6 pg/mL 2.3-4.2 T4 FREE - 09/18/16 19:13 T4 FREE 1.5 ng/dL 0.8-1.8 THYROID STIM HORMONE (TSH) - 09/18/16 19:13 THYROID STIM HORMONE (TSH) 3.18 uIU/mL 0.34-4.82 URINALYSIS, ROUTINE - 09/18/16 21:10 UA LEUKOCYTE ESTERASE DIPSTICK 2+ NEGATIVE UA NITRITE DIPSTICK NEGATIVE NEGATIVE UA PROTEIN DIPSTICK NEGATIVE NEGATIVE UA GLUCOSE DIPSTICK NEGATIVE NEGATIVE UA KETONE DIPSTICK 2+ NEGATIVE UA UROBILINOGEN DIPSTICK NORMAL NORMAL UA BILIRUBIN DIPSTICK NEGATIVE NEGATIVE UA BLOOD DIPSTICK 1+ NEGATIVE UA SPECIFIC GRAVITY 1.015 1.015-1.025 UR PH 6.0 5.0-7.0 UA MICROSCOPIC - 09/18/16 21:10 UA BACTERIA 1+ NEGATIVE UA EPITHELIAL CELLS 1+ epi/hpf 0 - 1+ UA RBC 0-3 rbc/hpf 0 - 3 UA VOLUME FOR EXAM 12.0 mL (12mL STD) UA WBC 50-100 wbc/hpf 0 - 5 UA YEAST 4+ NEGATIVE URINE CULTURE - 09/18/16 21:10 Microbiology METABOLIC PANEL, COMPREHN - 09/19/16 05:38 POTASSIUM 3.6 mmol/L 3.5-5.3 EST GFR (MDRD) > 60 mL/min > 59 ANION GAP 13 mmol/L 5-15 EST CrCl (CG) 40 mL/min > 59 GLUCOSE 79 mg/dL 70-99 CALCIUM 8.5 mg/dL 8.5-10.1 BLOOD UREA NITROGEN 16 mg/dL 7-20 CREATININE 0.9 mg/dL 0.7-1.3 SODIUM 137 mmol/L 135-148 CHLORIDE 101 mmol/L 98-110 AST/SGOT 8 Units/L 10-37 ALT/SGPT 11 Units/L < 66 CARBON DIOXIDE 23 mmol/L 21-32 TOTAL PROTEIN 6.9 gm/dL 6.4-8.2 ALBUMIN 2.7 gm/dL 3.4-5.0 BILI TOTAL 0.5 mg/dL 0.0-1.0 ALKALINE PHOSPHATASE TOTAL 51 IU/L 45- 117 LIPASE - 09/19/16 05:38 LIPASE 43 Units/L 73-393 FERRITIN - 09/19/16 05:38 FERRITIN 154 ng/mL 26-388 PARATHYROID HORMONE (INTACT) - 09/19/16 05:38 PARATHYROID HORMONE (INTACT) 75 pg/mL 14- 85 VITAMIN D 1,25-DIHYDROXY - 09/19/16 05:38 VITAMIN D 1,25-DIHYDROXY 47.3 pg/mL 19.9- 79.3 IRON W/ BINDING CAPACITY - 09/19/16 05:38 IRON SATURATION 14 % SAT 11-46 IRON BINDING CAPACITY, TOTAL 224 mcg/dL 250-450 IRON 31 mcg/dL 35-150 CBC W/DIFF - 09/19/16 05:38 EOSINOPHIL # 0.2 k/cumm 0.1-0.5 EOSINOPHIL % 2 % 2-4 GRANULOCYTE # 6.1 k/cumm 2.0-9.0 GRANULOCYTE % 66 % 50-75 LYMPHOCYTE # 1.9 k/cumm 1.0-4.0 LYMPHOCYTE % 21 % 20-30 MEAN CELL HGB 29.2 pg 27.0-33.0 MEAN CELL HGB CONCENTRATION 32.0 g/dL 32.0-37.0 MEAN CELL VOLUME 91.2 fl 80.0-100.0 MONOCYTE # 1.0 k/cumm 0.1-1.0 MONOCYTE % 11 % 4-6 RED BLOOD CELL 3.87 m/cumm 4.00-6.00 RED CELL DISTRIBUTION WIDTH 14.0 % 11.0- 15.6 WHITE BLOOD CELL 9.2 k/cumm 5.0-10.0 HEMOGLOBIN 11.3 gm/dL 14.0-18.0 HEMATOCRIT 35.3 % 40.0-54.0 PLATELET COUNT 415 k/cumm 150-400 VITAMIN B12 - 09/19/16 05:38 VITAMIN B12 652 pg/mL 211-911 CBC W/MANUAL DIFF - 09/20/16 04:38 MEAN CELL HGB 29.3 pg 27.0-33.0 MEAN CELL HGB CONCENTRATION 32.1 g/dL 32.0-37.0 MEAN CELL VOLUME 91.3 fl 80.0-100.0 RED BLOOD CELL 3.89 m/cumm 4.00-6.00 RED CELL DISTRIBUTION WIDTH 14.2 % 11.0- 15.6 WHITE BLOOD CELL 9.1 k/cumm 5.0-10.0 HEMOGLOBIN 11.4 gm/dL 14.0-18.0 HEMATOCRIT 35.5 % 40.0-54.0 PLATELET COUNT 403 k/cumm 150-400 MANUAL DIFF(O) - 09/20/16 04:38 EOSINOPHIL # 0.1 k/cumm 0.1-0.5 EOSINOPHIL % 1 % 2-4 GRANULOCYTE # 6.4 k/cumm 2.0-9.0 LYMPHOCYTE # 1.9 k/cumm 1.0-4.0 LYMPHOCYTE % 21 % 20-30 DIFFERENTIAL MANUAL MONOCYTE # 0.7 k/cumm 0.1-1.0 MONOCYTE % 8 % 4-6 RBC MORPH NOTED SEGMENTED NEUTROPHIL % 70 % 50-70 RENAL FUNCTION PANEL - 09/20/16 04:38 POTASSIUM 3.4 mmol/L 3.5-5.3 EST GFR (MDRD) > 60 mL/min > 59 ANION GAP 15 mmol/L 5-15 EST CrCl (CG) 45 mL/min > 59 GLUCOSE 62 mg/dL 70-99 CALCIUM 8.2 mg/dL 8.5-10.1 BLOOD UREA NITROGEN 11 mg/dL 7-20 CREATININE 0.8 mg/dL 0.7-1.3 SODIUM 136 mmol/L 135-148 CHLORIDE 103 mmol/L 98-110 CARBON DIOXIDE 18 mmol/L 21-32 ALBUMIN 2.6 gm/dL 3.4-5.0 PHOSPHORUS 2.4 mg/dL 2.5-4.9 Encounters ACCT No. Visit Date/Time Discharge Status Pt. Type Provider Facility Loc./Unit Complaint [id number] 05/03/2015 06:27:00 2014 14:11:34 DIS Inpatient DONATO [facility] [id number]
--- OUTSIDE RECORDS SUMMARY | 2016-12-23 18:46 | XMS REPORT | Continuity of Care Document ---
Author Author [facility] Organization [facility] Address Unknown Phone Unavailable Support Name Relationship Address Phone LONDON PATIÑO APRN Caregiver [address] [place] [address] JENNIFERWALLY MARION "MAI" Caregiver [address] [place] [address] Unavailable BERNARD VALENZUELA Next Of Kin [address] [place] [address] Insurance Providers Guarantor Carolyn Valenzuela Address [address] [place] [address] Email DENIED 16 Payer [facility] Policy Number [id number] Subscriber's Name Carolyn Valenuzela Mu Relationship 18 Self Group Number [id number] Payer Medicare Policy Number [id number] Subscriber's Name BiancaCarolyn Mu Relationship 18 Self Problems Active Problems Medical Problem Onset Date [...] Ordered Status Aspirin (Aspir 81) 81 Mg Tablet.dr, 1 Tab Oral Daily 01/09/15 Discontinued Social History Social History Problem Response Recorded Date/Time Onset Date Status Hx Alcohol Use No 10/01/2016 8:55am Not Applicable Not Applicable Has the pt used tobacco in the last 12 months No 11/03/2016 7:03pm Not Applicable Not Applicable Query Response Start Date Stop Date Smoking Status Former smoker Hospital Discharge Instructions No hospital discharge instructions. Plan of Care Prescriptions See Medication Section Functional Status No [...] Recorded Date/Time Hx Influenza Vaccination N refused 11/03/16 7:03pm Hx Pneumococcal Vaccination Y 5-6 yrs ago 11/03/16 7:03pm Hx Influenza Vaccination N refused 11/03/16 7:03pm Vital Signs Acute Vital Signs Vital Response Date/Time Temperature (Fahrenheit) 97.6 deg F (96.8 - 99.1) 11/03/2016 12:40pm Temperature (Calculated Celsius) 36.43688 degrees C (36.0 - 37.3) 11/03/2016 12:40pm Temperature Source Oral 10/01/2016 12:00pm Pulse Rate (adult) 59 bpm (60 - 100) 11/03/2016 12:40pm Respiratory Rate 18 breaths/min (10 - 20) 11/03/2016 12:40pm O2 Sat by Pulse Oximetry 99 % (90 - 100) 11/03/2016 12:40pm Oxygen Delivery Method Room Air 11/03/2016 12:40pm Oxygen Flow Rate 6.00 L/min 10/01/2016 11:24am Blood Pressure 125/61 mm Hg 11/03/2016 12:40pm Blood Pressure Source Automatic Cuff 11/03/2016 12:40pm Height (Feet) 5 feet 11/03/2016 12:35pm Height (Inches) 5.00 inches 11/03/2016 12:35pm Weight (Kilograms) 50.000 kg 11/03/2016 12:35pm Body Mass Index (BMI) 18.3 11/03/2016 12:35pm Results Laboratory Results Test Name Result Units Flags Reference Collection Date/Time Result Date/ Time Comments C-Reactive Protein 139.7 MG/L H 0-9 10/14/2016 9:40am 10/14/2016 10: 33am Procalcitonin 0.06 NG/ML 10/14/2016 9:40am 10/14/2016 10:16am PCT </ =0.5 ng/mL - sepsis not likely; PCT >0.5 and </=2 ng/mL - sepsis possible; PCT >2 ng/mL - sepsis likely; PCT >/=10 ng/mL - systemic inflammatory response - sepsis or septic shock highly indicated. Erythrocyte Sedimentation Rate 78 mm/h H 0-15 10/14/2016 9:40am 2015 6:32pm Sedimentation Rate performed at [facility], [address] [place] [address] Party Director Michelle Jain DO White Blood Count 2.7 T/MM3 L 4.5-11.0 11/05/2016 8:15am 11/05/2016 8: 41am Red Blood Count 3.31 M/MM3 L 4.50-5.90 11/05/2016 8:15am 11/05/2016 8: 41am Hemoglobin 9.8 GM/DL D L 13.5-17.5 11/05/2016 8:15am 11/05/2016 8:41am Hematocrit 30.9 % D L 41-53 11/05/2016 8:15am 11/05/2016 8:41am Mean Corpuscular Volume 93.4 UM3 80-100 11/05/2016 8:15am 11/05/2016 8: 41am Mean Corpuscular Hemoglobin 29.6 UUG 26-34 11/05/2016 8:152016 8:41am Mean Corpuscular Hemoglobin Concent 31.7 GM/DL 31-37 11/05/2016 8:15am 11/05/2016 8:41am RDW Standard Deviation 50.6 FL H 36.9-50.2 11/05/2016 8:15am 11/05/2016 8:41am Platelet Count 187 T/MM3 130-400 11/05/2016 8:15am 11/05/2016 8:41am Mean Platelet Volume 9.3 UM3 L 9.4-12.4 11/05/2016 8:15am 11/05/2016 8: 41am Neutrophils (%) (Auto) 49.8 % 33-66 11/05/2016 8:15am 11/05/2016 8: 41am Lymphocytes (%) (Auto) 34.2 % 23-45 11/05/2016 8:15am 11/05/2016 8: 41am Monocytes (%) (Auto) 12.3 % H 0-9.0 11/05/2016 8:15am 11/05/2016 8:41am Eosinophils (%) (Auto) 2.6 % 0-4 11/05/2016 8:15am 11/05/2016 8:41am Basophils (%) (Auto) 0.7 % 0-2 11/05/2016 8:15am 11/05/2016 8:41am Immature Granulocyte % (Auto) 0.4 % 0.0-0.5 11/05/2016 8:15am 2016 8:41am Absolute Neutrophils (auto) 1.3 T/MM3 L 1.8-7.7 11/05/2016 8:15am 2016 8:41am Absolute Lymphocytes (auto) 0.9 T/MM3 L 1-4.8 11/05/2016 8:15am 2016 8:41am Absolute Monocytes (auto) 0.3 T/MM3 0-0.8 11/05/2016 8:15am 11/05/2016 8:41am Absolute Eosinophils (auto) 0.1 T/MM3 0-0.5 11/05/2016 8:15am 2016 8:41am Absolute Basophils (auto) 0.0 T/MM3 0-0.2 11/05/2016 8:11/05/2016 8:41am Absolute Immature Granulocyte (auto 0.01 T/MM3 0.00-0.03 11/05/2016 8: 11/05/2016 8:41am Neutrophils % (Manual) 58.0 % 33-66 11/03/2016 8:11/03/2016 8: 52am Band Neutrophils % 2.0 % 0-6 11/03/2016 8:11/03/2016 8:52am Lymphocytes % (Manual) 30.0 % 23-45 11/03/2016 8:11/03/2016 8: 52am Monocytes % (Manual) 8.0 % 0-9.0 11/03/2016 8:11/03/2016 8:52am Eosinophils % (Manual) 2.0 % 0-4 11/03/2016 8:11/03/2016 8:52am Band Neutrophils # 0.0 T/MM3 11/03/2016 8:11/03/2016 8:52am Absolute Neutrophils (Manual) 1.2 T/MM3 L 1.8-7.7 11/03/2016 8:am 8:52am Lymphocytes # (Manual) 0.6 T/MM3 L 1-4.8 11/03/2016 8:11/03/2016 8: 52am Monocytes # (Manual) 0.2 T/MM3 0-0.8 11/03/2016 8:am 11/03/2016 8: 52am Eosinophils # (Manual) 0.0 T/MM3 0-0.5 11/03/2016 8:11/03/2016 8: 52am Red Cell Morphology Comment NORMAL 11/03/2016 8:11/03/2016 8: 52am Icterus Index < 2 0-7 11/05/2016 8:11/05/2016 9:25am Chemistry Specimen Hemolysis 47 H 0-25 11/05/2016 8:11/05/2016 9: 25am 26-70: Specimen Exhibited Slight Hemolysis - can falsely elevate K (Potassium) and Urine Protein. Turbidity < 20 0-20 11/05/2016 8:11/05/2016 9:25am Sodium Level 135 MEQ/L 134-144 11/05/2016 8:11/05/2016 9:25am Potassium Level 4.0 MEQ/L 3.6-5 11/05/2016 8:11/05/2016 9:25am Chloride Level 103 MEQ/L 98-107 11/05/2016 8:11/05/2016 9:25am Carbon Dioxide Level 23 MEQ/L 22-30 11/05/2016 8:11/05/2016 9: 25am Anion Gap 9 MEQ/L 5-15 11/05/2016 8:11/05/2016 9:25am Blood Urea Nitrogen 11.0 MG/DL 9-11/05/2016 8:11/05/2016 9: 25am Creatinine 0.8 MG/DL 0.8-1.5 11/05/2016 8:11/05/2016 9:25am BUN/Creatinine Ratio 14 RATIO 6-26 11/05/2016 8:11/05/2016 9:25am Glomerular Filtration Rate Calc 91 11/05/2016 8:11/05/2016 9: 25am Glucose Level 91 MG/DL 75-110 11/05/2016 8:11/05/2016 9:25am Calculated Osmolality 259 MOSM/KG L 261-280 11/05/2016 8:2016 9:25am Calcium Level 8.4 MG/DL 8.4-10.2 11/05/2016 8:11/05/2016 9:25am Total Bilirubin 0.90 MG/DL 0.20-1.30 11/05/2016 8:11/05/2016 9: 25am Alkaline Phosphatase 48 U/L 38-126 11/05/2016 8:11/05/2016 9:25am Total Protein 5.7 G/DL L 6.3-8.2 11/05/2016 8:11/05/2016 9:25am Albumin 3.1 G/DL L 3.5-5.0 11/05/2016 8:11/05/2016 9:25am Globulin 2.6 G/DL 2.4-3.6 11/05/2016 8:11/05/2016 9:25am Albumin/Globulin Ratio 1.2 RATIO 1.1-2.2 11/05/2016 8:15am 11/05/2016 9 :25am Aspartate Amino Transf (AST/SGOT) 21 U/L 17-59 11/05/2016 8:15am 2016 9:25am Alanine Aminotransferase (ALT/SGPT) 20 U/L L 21-72 11/05/2016 8:15am 9:25am Lactate Dehydrogenase 564 U/L 313-618 11/05/2016 8:15am 11/05/2016 9: 25am Magnesium Level 2.0 MG/DL 1.6-2.3 11/05/2016 8:15am 11/05/2016 9:25am Urine Collection Type CLEANCATCH-MIDSTREAM 10/29/2016 11:55am 10/29 12:12pm Urine Color YELLOW YELLOW 10/29/2016 11:55am 10/29/2016 12:12pm Urine Turbidity CLEAR CLEAR 10/29/2016 11:55am 10/29/2016 12:12pm Urine Specific [place] 1.015 1.015-1.025 10/29/2016 11:55am 2016 12:12pm Urine pH 7.5 5.0-8.0 10/29/2016 11:55am 10/29/2016 12:12pm Urine Leukocyte Esterase NEGATIVE NEGATIVE 10/29/2016 11:55am 2016 12:12pm Urine Nitrite NEGATIVE NEGATIVE 10/29/2016 11:55am 10/29/2016 12: 12pm Urine Protein TRACE A NEGATIVE 10/29/2016 11:55am 10/29/2016 12:12pm Urine Glucose (UA) NEGATIVE NEGATIVE 10/29/2016 11:55am 10/29/2016 12 :12pm Urine Ketones NEGATIVE NEGATIVE 10/29/2016 11:55am 10/29/2016 12: 12pm Urine Urobilinogen 0.2 EU/DL NORMAL 10/29/2016 11:55am 10/29/2016 12: 12pm Urine Bilirubin NEGATIVE NEGATIVE 10/29/2016 11:55am 10/29/2016 12: 12pm Urine Blood NEGATIVE NEGATIVE 10/29/2016 11:55am 10/29/2016 12:12pm Urinalysis Comment MICROSCOPIC NOT IND. 10/29/2016 11:55am 2016 12:12pm Microbiology Results Procedure Source Organism/Result Collection Date/Time Result Date/Time Result Status Blood Culture Cath/Port/Line/Picc NO GROWTH AFTER 5 DAYS 10/14/2016 9:40am 10/19/2016 9:46am Final Blood Culture Peripheral/Iv Start NO GROWTH AFTER 5 DAYS 10/14/2016 9:40am 10/19/2016 9:46am Final Urine Culture Not Provided RG ALBICANS 10/14/2016 UNK 10/16/2016 9: 18am Final Procedures Procedure Status Date Provider(s) Routine venipuncture Completed 09/01/16 Comprehen metabolic panel Completed 09/01/16 Lactate (ld) (ldh) enzyme Completed 09/01/16 Assay of magnesium Completed 09/01/16 Complete cbc w/auto diff wbc Completed 09/01/16 Pet image w/ct skull-thigh Completed 09/17/16 538758"FLUORODEOXYGLUCOSE F-18 FDG, DIAGNOSTIC, PER STUDY DO Completed Routine venipuncture Completed 09/22/16 Comprehen metabolic panel Completed 09/22/16 Lactate (ld) (ldh) enzyme Completed 09/22/16 Assay of magnesium Completed 09/22/16 Complete cbc w/auto diff wbc Completed 09/22/16 Cat scan follow-up study Completed 09/25/16 Routine venipuncture Completed 09/29/16 Comprehen metabolic panel Completed 09/29/16 Lactate (ld) (ldh) enzyme Completed 09/29/16 Assay of magnesium Completed 09/29/16 Complete cbc w/auto diff wbc Completed 09/29/16 Routine venipuncture Completed 09/29/16 Comprehen metabolic panel Completed 09/29/16 Lactate (ld) (ldh) enzyme Completed 09/29/16 Assay of magnesium Completed 09/29/16 Complete cbc w/auto diff wbc Completed 09/29/16 Routine venipuncture Completed 09/29/16 Comprehen metabolic panel Completed 09/29/16 Lactate (ld) (ldh) enzyme Completed 09/29/16 Assay of magnesium Completed 09/29/16 Procalcitonin (pct) Completed 09/29/16 Complete cbc w/auto diff wbc Completed 09/29/16 Rbc sed rate automated Completed 09/29/16 C-reactive protein Completed 09/29/16 Blood culture for bacteria Completed 09/29/16 Blood culture for bacteria Completed 09/29/16 Urine culture/colony count Completed 09/29/16 Routine venipuncture Completed 09/29/16 Comprehen metabolic panel Completed 09/29/16 Lactate (ld) (ldh) enzyme Completed 09/29/16 Assay of magnesium Completed 09/29/16 Procalcitonin (pct) Completed 09/29/16 Complete cbc w/auto diff wbc Completed 09/29/16 Rbc sed rate automated Completed 09/29/16 C-reactive protein Completed 09/29/16 Blood culture for bacteria Completed 09/29/16 Blood culture for bacteria Completed 09/29/16 Urine culture/colony count Completed 09/29/16 Routine venipuncture Completed 10/01/16 Insert tunneled cv cath Completed 10/01/16 JUNO GROVE MD Fluoroguide for vein device Completed 10/01/16 Comprehen metabolic panel Completed 10/01/16 619096"PORT, INDWELLING (IMPLANTABLE)" Completed 10/01/16 405380"INJECTION, HEPARIN SODIUM, (HEPARIN LOCK FLUSH), PER Completed 631824"INFUSION, NORMAL SALINE SOLUTION , 1000 CC" Completed 10/01/16 Urinalysis auto w/o scope Completed 10/29/16 Encounters Encounter Location Arrival/Admit Date Discharge/Depart Date Attending Provider Registered [facility] 11/05/16 8:08am ELVIRA QUINN Discharged [facility] 11/03/16 9:44am 11/03/16 7:23pm LONDON PATIÑO APRN Registered [facility] 10/29/16 12:02pm ELVIRA QUINN Departed [facility] 10/01/16 8:18am 10/01/16 1: 20pm JUNO GROVE MD Discharged [facility] 09/29/16 8:23am 10/18/16 11:42pm ELVIRA QUINN Registered [facility] 09/25/16 3:24pm FAVIAN STEWART MD Registered [facility] 09/22/16 2:59pm ELVIRA QUINN Registered [facility] 09/17/16 7:17am ELVIRA QUINN Registered [facility] 09/01/16 11:04am ELVIRA QUINN
--- OUTSIDE RECORDS SUMMARY | 2016-12-23 18:47 | XMS REPORT | CCD ---
Author Author L[facility] Organization Unknown Address [address], [place] [id number] Phone 0 Care Team Providers Care Supervisor Of Guidance And Testing Name Role Phone ELVIRA QUINN Attending Physician [phone] Vital Signs Unknown or Not Available. Allergies Allergy Code Allergy Type Reaction Status HYDROCHLOROTHIAZIDE 5487 Drug allergy Active NORFLEX 520755 Drug allergy Active LEVAQUIN LEVA-ETHEL 0 Drug allergy Active INFLUENZA VIRUS VACCINE 5806 Drug allergy Active VALACYCLOVIR 30792 Drug allergy Active PENICILLIN 25209 Drug allergy HIVES Active DOXYCYCLINE 3640 Drug allergy Active Procedures Unknown or Not Available. 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 Active Medications Medication Code Dose Units Frequency Route Modification Start Date/Time Albuterol Sulfate 0.083% Inhalation Solution 550845 1 EACH every 4 hrs as needed INHALATION 2015 14:25 Prescription Detail 1 EACH INHALATION every 4 hrs as needed Calcitriol 0.25MCG Oral Capsule, Liquid Filled 959266 0.25 MCG DAILY ORAL 02/05/2016 14:25 Prescription Detail 0.25 MCG ORAL DAILY Calcium Acetate 667 MG Oral Tablet 820364 2300 MG 3 TIMES DAILY WITH MEALS ORAL 02/05/2016 14:25 Prescription Detail 1334 MG ORAL 3 TIMES DAILY WITH MEALS Cyanocobalamin 1000MCG/1ML Intramuscular Solution 453969 1 EACH Q 30 DAYS, NEXT DUE 02/07/16 INTRAMUSCULAR 02/05/2016 14:25 Prescription Detail 1 EACH INTRAMUSCULAR Q 30 DAYS, NEXT DUE 02/07/16 Famotidine 10MG Oral Tablet 973310 10 MILLIGRAMS AT BEDTIME ORAL 02/05/2016 14:25 Prescription Detail 10 MILLIGRAMS ORAL AT BEDTIME Flomax 0.4MG Oral Capsule 693246 0.4 MILLIGRAMS DAILY AFTER DINNER ORAL 02/05/2016 14:25 Prescription Detail 0.4 MILLIGRAMS ORAL DAILY AFTER DINNER hydrALAZINE HCl 25MG Oral Tablet 053304 25 MILLIGRAMS THREE TIMES DAILY ORAL 02/05/2016 14:25 Prescription Detail 25 MILLIGRAMS ORAL THREE TIMES DAILY Ipratropium [place]on-Albuterol Sulfate 0.5MG/3ML-3MG/3ML Inhalation Solution 3850979 1 EACH EVERY 4 HRS NEEDED INHALATION 02/05/2016 14:25 Prescription Detail 1 EACH INHALATION EVERY 4 HRS NEEDED Metoprolol Tartrate 50MG Oral Tablet 083468 50 MILLIGRAMS TWICE A DAY ORAL 02/05/2016 14:25 Prescription Detail 50 MILLIGRAMS ORAL TWICE A DAY Proscar 5MG Oral Tablet 807089 5 MILLIGRAMS AT BEDTIME ORAL 02/05/2016 14:25 Prescription Detail 5 MILLIGRAMS ORAL AT BEDTIME Senokot 8.6MG Oral Tablet 849603 8.6 MILLIGRAMS NEEDED ORAL 02/05/2016 14:25 Prescription Detail 8.6 MILLIGRAMS ORAL NEEDED Uloric 40MG Oral Tablet 709514 40 MILLIGRAMS DAILY ORAL 02/05/2016 14:25 Prescription Detail 40 MILLIGRAMS ORAL DAILY Acetaminophen 500MG Oral Tablet 982206 500 MILLIGRAMS EVERY FOUR HOURS NEEDED BY MOUTH For Pain 14:20 Prescription Detail TAKE 500 MILLIGRAMS BY MOUTH EVERY FOUR HOURS NEEDED For Pain amLODIPine Besylate 5MG Oral Tablet 162507 10 MILLIGRAMS QD BY MOUTH 02/05/2016 14:18 Prescription Detail TAKE 10 MILLIGRAMS BY MOUTH QD GaviLAX 17GM/1Dose Oral Powder for Solution 025186 17 GRAM QD ORAL 02/05/2016 14:18 Prescription Detail 17 GRAM ORAL QD K-Tab 10MEQ Oral Tablet, Extended Release 027996 10 MILLIEQUIVALENT DAILY BY MOUTH 02/05/2016 14:17 Prescription Detail TAKE 10 MILLIEQUIVALENT BY MOUTH DAILY Magnesium Oxide 400MG Oral Tablet 382700 400 MILLIGRAMS TWICE A DAY BY MOUTH 02/05/2016 14:17 Prescription Detail TAKE 400 MILLIGRAMS BY MOUTH TWICE A DAY Nitrostat 0.4MG Sublingual Tablet 403836 0.4 MILLIGRAMS NEEDED SUBLINGUAL 02/05/2016 14:[address] 0.4 MILLIGRAMS SUBLINGUAL NEEDED Zofran 4MG Oral Tablet, Disintegrating 517111 4 TABLET PRN Q6H BY MOUTH 02/05/2016 14:17 Prescription Detail TAKE 4 TABLET BY MOUTH PRN Q6H Symbicort 80MCG/Actuation-4.5M Inhalation Aerosol Liquid 6629080 2 Puffs TWICE A DAY Inhale 2012 10:02 Prescription Detail Inhale 2 Puffs Inhale TWICE A DAY Medications Administered During Visit Unknown or Not Available. Encounters Unknown or Not Available. Social History Smoking Status Code Start Date End Date Former smoker 5337372 Patient Decision Aids Unknown or Not Available. Discharge Instructions You were admitted to [facility] on 11/10/2016 13:06 You were discharged from [facility] on 11/10/2016 13:06 Should you have any questions prior to discharge, please contact a member of your healthcare team. If you have left the hospital and have any questions, please contact your primary care physician. Chief Complaint and Reason For Visit Chief Complaint Date of Onset US VENOUS BILATERAL EXTREMITY Function Status Unknown or Not Available. Plan of Care Unknown or Not Available. Referral/Transition of Care Unknown or Not Available.
--- OUTSIDE RECORDS SUMMARY | 2016-12-23 18:48 | XMS REPORT ---
Author Author Chandler Sanders Organization [employer] Address Unknown Phone Unavailable Care Team Providers Care Ship Liner Name Role Phone Chandler Sanders CP Unavailable Allergies No Known Allergies Problems No Known Problems Medications No Known Medications Results No Known Results Summary Purpose [employer] Submission
--- OUTSIDE RECORDS SUMMARY | 2016-12-23 18:48 | XMS REPORT | Continuity of Care Document ---
Author Author [facility] Organization [facility] Address Unknown Phone Unavailable Support Name Relationship Address Phone JUNO HERNANDEZ MD Caregiver [address] [place] [address] [place] [address] Unavailable WALLY RODRIGUEZ "MAI" Caregiver [address] [place] [address] Unavailable BERNARD VALENZUELA Next Of Kin [address] [place] [address] Insurance Providers Guarantor Carolyn Valenzuela Address [address] [place] [address] Email DENIED/NO TO PT [facility] Policy Number [id number] Subscriber's Name Carolyn Valenzuela Relationship 18 Self Group Number [id number] Payer Medicare Policy Number [id number] Subscriber's Name Carolyn Valenzuela Relationship 18 Self Advance Directives Directive Response [...] You may call Dr. Hernandez's office at [phone] if you have any concerns. Pending Lab [...] office hours, call Dr. Hernandez's office at [phone]. After Business Hours:: After hours, please call [facility] at [phone] and have the washroom operator page Dr. Hernandez or the covering [...] Care Discharge Date 10/01/16 1:20pm Instructions/Education Provided [facility] Surgical Services DI for Implanted Venous Access [...] - 99.1) 10/01/2016 12:00pm Temperature (Calculated Celsius) 37.69548 degrees C (36.0 - 37.3) 10/01/2016 12:00pm [...] Result Date/ Time Comments White Blood Count 4.4 T/MM3 L 4.5-11.0 10/14/2016 8:12am 10/14/2016 8: 15am Red Blood Count 3.20 M/MM3 L 4.50-5.90 10/14/2016 8:12am 10/14/2016 8: 15am Hemoglobin 9.6 GM/DL L 13.5-17.5 10/14/2016 8:12am 10/14/2016 8:15am Hematocrit 30.5 % L 41-53 10/14/2016 8:12am 10/14/2016 8:15am Mean Corpuscular Volume 95.3 UM3 80-100 10/14/2016 8:12am 10/14/2016 8: 15am Mean Corpuscular Hemoglobin 30.0 UUG 26-34 10/14/2016 8:12am 2015 8:15am Mean Corpuscular Hemoglobin Concent 31.5 GM/DL 31-37 10/14/2016 8:12am 10/14/2016 8:15am RDW Standard Deviation 45.2 FL 36.9-50.2 10/14/2016 8:1210/14/2016 8 :15am Platelet Count 351 T/MM3 130-400 10/14/2016 8:1210/14/2016 8:15am Mean Platelet Volume 8.6 UM3 L 9.4-12.4 10/14/2016 8:12am 10/14/2016 8: 15am Neutrophils (%) (Auto) 68.5 % H 33-66 10/14/2016 8:10/14/2016 8: 15am Lymphocytes (%) (Auto) 17.9 % L 23-45 10/14/2016 8:1210/14/2016 8: 15am Monocytes (%) (Auto) 12.2 % H 0-9.0 10/14/2016 8:10/14/2016 8:15am Eosinophils (%) (Auto) 0.7 % 0-4 10/14/2016 8:10/14/2016 8:15am Basophils (%) (Auto) 0.2 % 0-2 10/14/2016 8:10/14/2016 8:15am Immature Granulocyte % (Auto) 0.5 % 0.0-0.5 10/14/2016 8:2015 8:15am Absolute Neutrophils (auto) 3.0 T/MM3 1.8-7.7 10/14/2016 8:2015 8:15am Absolute Lymphocytes (auto) 0.8 T/MM3 L 1-4.8 10/14/2016 8:2015 8:15am Absolute Monocytes (auto) 0.5 T/MM3 0-0.8 10/14/2016 8:10/14/2016 8:15am Absolute Eosinophils (auto) 0.0 T/MM3 0-0.5 10/14/2016 8:2015 8:15am Absolute Basophils (auto) 0.0 T/MM3 0-0.2 10/14/2016 8:10/14/2016 8:15am Absolute Immature Granulocyte (auto 0.02 T/MM3 0.00-0.03 10/14/2016 8: 1210/14/2016 8:15am Icterus Index < 2 0-7 10/14/2016 8:1210/14/2016 8:26am Chemistry Specimen Hemolysis < 15 0-25 10/14/2016 8:1210/14/2016 8 :26am 0-25: Specimen Exhibited No Hemolysis. Turbidity < 20 0-20 10/14/2016 8:1210/14/2016 8:26am Sodium Level 134 MEQ/L 134-144 10/14/2016 8:1210/14/2016 8:26am Potassium Level 4.1 MEQ/L 3.6-5 10/14/2016 8:1210/14/2016 8:26am Chloride Level 99 MEQ/L 98-107 10/14/2016 8:1210/14/2016 8:26am Carbon Dioxide Level 26 MEQ/L 22-30 10/14/2016 8:1210/14/2016 8: 26am Anion Gap 9 MEQ/L 5-15 10/14/2016 8:1210/14/2016 8:26am Blood Urea Nitrogen 14.0 MG/DL 9-10/14/2016 8:1210/14/2016 8: 26am Creatinine 1.0 MG/DL 0.8-1.5 10/14/2016 8:1210/14/2016 8:26am BUN/Creatinine Ratio 14 RATIO 6-10/14/2016 8:1210/14/2016 8:26am Glomerular Filtration Rate Calc 70 10/14/2016 8:1210/14/2016 8: 26am Glucose Level 119 MG/DL H 75-110 10/14/2016 8:1210/14/2016 8:26am Calculated Osmolality 260 MOSM/KG L 261-280 10/14/2016 8:122015 8:26am Calcium Level 8.8 MG/DL 8.4-10.2 10/14/2016 8:1210/14/2016 8:26am Total Bilirubin 0.60 MG/DL 0.20-1.30 10/14/2016 8:1210/14/2016 8: 26am Alkaline Phosphatase 56 U/L 38-126 10/14/2016 8:1210/14/2016 8:26am Total Protein 6.3 G/DL 6.3-8.2 10/14/2016 8:12am 10/14/2016 8:26am Albumin 3.4 G/DL L 3.5-5.0 10/14/2016 8:12am 10/14/2016 8:26am Globulin 2.9 G/DL 2.4-3.6 10/14/2016 8:12am 10/14/2016 8:26am Albumin/Globulin Ratio 1.2 RATIO 1.1-2.2 10/14/2016 8:12am 10/14/2016 8 :26am Aspartate Amino Transf (AST/SGOT) 14 U/L L 17-59 10/14/2016 8:12am 10/14 8:26am Alanine Aminotransferase (ALT/SGPT) 24 U/L 21-72 10/14/2016 8:12am 8:26am Lactate Dehydrogenase 319 U/L 313-618 10/14/2016 8:12am 10/14/2016 8: 26am C-Reactive Protein 139.7 MG/L H 0-9 10/14/2016 9:40am 10/14/2016 10: 33am Magnesium Level 2.1 MG/DL 1.6-2.3 10/14/2016 8:12am 10/14/2016 8:26am Procalcitonin 0.06 NG/ML 10/14/2016 9:40am 10/14/2016 10:16am PCT </ =0.5 ng/mL - sepsis not likely; PCT >0.5 and </=2 ng/mL - sepsis possible; PCT >2 ng/mL - sepsis likely; PCT >/=10 ng/mL - systemic inflammatory response - sepsis or septic shock highly indicated. Erythrocyte Sedimentation Rate 78 mm/h H 0-15 10/14/2016 9:40am 2015 6:32pm Sedimentation Rate performed at [facility] Reference Lab, [address], [place] [address] Streaming Media Specialist Michelle Jain DO Microbiology Results Procedure Source Organism/Result Collection Date/Time Result Date/Time Result Status Blood Culture Cath/Port/Line/Picc NO GROWTH AFTER 4 DAYS 10/14/2016 9:40am 10/18/2016 9:46am Preliminary Blood Culture Peripheral/Iv Start NO GROWTH AFTER 4 DAYS 10/14/2016 9:40am 10/18/2016 9:46am Preliminary Urine Culture Not Provided RG ALBICANS 10/14/2016 UNK 10/16/2016 9: 18am Final Name: CAROLYN VALENZUELA Unit #: [id number] : 1925 Sex: M Admit Date: Loc / Svc: SCU Discharge Date: DIAGNOSTIC IMAGING REPORT Report #: [id number] [facility] NADJA Burnett Indication: ITS.REASON: POWERPORT INSERTION [...] 09/01/16 PET IMAGE W/CT SKULL-THIGH Completed 09/17/16 [id number]"FLUORODEOXYGLUCOSE F-18 FDG, DIAGNOSTIC, PER STUDY DO Completed ROUTINE VENIPUNCTURE Completed 09/22/16 COMPREHEN METABOLIC PANEL Completed 09/22/16 LACTATE (LD) (LDH) ENZYME Completed 09/22/16 ASSAY OF MAGNESIUM Completed 09/22/16 COMPLETE CBC W/AUTO DIFF WBC Completed 09/22/16 CAT SCAN FOLLOW-UP STUDY Completed 09/25/16 ROUTINE VENIPUNCTURE Completed 10/01/16 INSERT TUNNELED CV CATH Completed 10/01/16 JUNO HERNANDEZ MD FLUOROGUIDE FOR VEIN DEVICE Completed 10/01/16 COMPREHEN METABOLIC PANEL Completed 10/01/16 [id number]"PORT, INDWELLING (IMPLANTABLE)" Completed 10/01/16 [id number]"INJECTION, HEPARIN SODIUM, (HEPARIN LOCK FLUSH), PER Completed [id number]"INFUSION, NORMAL SALINE SOLUTION , 1000 CC" Completed 10/01/16 Encounters Encounter Location Arrival/Admit Date Discharge/Depart Date Attending Provider Discharged [facility] 10/14/16 12:25pm 10/18/16 11: 42pm ELVIRA QUINN Departed [facility] 10/01/16 8:18am 10/01/16 1: 20pm JUNO HERNANDEZ MD Registered [facility] 09/25/16 3:24pm FAVIAN STEWART MD Registered [facility] 09/22/16 2:59pm ELVIRA QUINN Registered [facility] 09/17/16 7:17am ELVIRA QUINN Registered [facility] 09/01/16 11:04am ELVIRA QUINN
--- OUTSIDE RECORDS SUMMARY | 2016-12-23 18:48 | XMS REPORT | Continuity of Care Document ---
Author Author [facility] Organization [facility] Address Unknown Phone Unavailable Support Name Relationship Address Phone NAGI ISIDRO MD Caregiver [address] [place], [place] [phone] LUAN VALDEZ APRN Caregiver [address] [place], [place] [id number] TRESA VALENZUELA Next Of Kin [address] [place] [address] Insurance Providers Payer Name Policy Number Subscriber Name Relationship Medicare [id number] Carolyn Valenzuela 18 Self [facility] [id number] Carolyn Valenzuela 18 Self Advance Directives Directive Response Recorded Date/Time Ordered Resuscitation Status Full Code 01/08/15 9:07pm Resuscitation Documents on File No 01/08/15 10:39am Chief Complaint and Reason for Visit Chief Complaint CYSTOSCOPY/BONILLA RETROGRADE/RT URETEROSCOPY/STENT IN Reason for Visit Renal mass Gross hematuria Problems Medical Problems Problem Onset Date Status Renal mass 01/11/2015 Active Gross hematuria 01/11/2015 Active Medications Medication Dose Route Sig Days/Qty Instructions Order Date Discontinued Date Status Lisinopril 1 Tab PO TWICE A DAY 01/08/15 Active Omeprazole 20 Mg PO BEFORE BREAKFAST Take 1 capsule, by mouth, one time a day before breakfast. 01/08/15 Active Tamsulosin HCl 0.4 Mg PO BEDTIME 01/09/15 Active Lubiprostone 24 Mcg PO DAILY 01/09/15 Active Oxycodone HCl/Acetaminophen 10-20 Mg PO NEEDED For PAIN 01/09/15 Active Budesonide/Formoterol Fumarate 2 Puff PO TWICE A DAY 01/09/15 Active Albuterol Sulfate 2 Puff INH Q4H 01/09/15 Active Albuterol Sulfate 2.5 Mg AEROSOL NEEDED For ASTHMA 01/09/15 Active Aspirin 1 Tab PO DAILY 01/09/15 Active Nitrofurantoin Monohyd/M-Cryst 1 Cap PO TWICE DAILY WITH MEALS 14 Qty 01/11/15 Active Social History Social History Problem Response Recorded Date/Time Hx Alcohol Use No 01/09/2015 7:40am Has the pt used tobacco in the last 12 months No 01/09/2015 7:40am Query Response Start Date Stop Date Smoking Status Former smoker Hospital Discharge Instructions Instructions: Care Instructions: Reason for Hospitalization: CYSTOSCOPY/ BILATERAL RETROGRADE/ STENT PLACED I was in the hospital because (patient own words): HAVING SOME STUFF DONE WTIH MY BLADDER AND KIDNEYS Discharge Diet: TOLERATED Discharge Activity: TOLERATED Follow Up Appointments: FOLLOW UP APPOINTMENT WITH DR. ISIDRO JANUARY 15 @ 2:30 PM AT [facility] OFFICE Patient Instructions: NAVARRO IS TO STAY IN PLACE UNTIL AM OF December. REMOVE NAVARRO AT HOME UPON WAKING UP. DR. ISIDRO WILL SEE YOU IN THE OFFICE AND WILL REMOVE YOUR STENT. Condition at time of discharge: Good at [phone]. 2. Problems such as: Temp above 101.5 degrees You develop redness, excessive swelling of the incision, increasing pain or excessive foul smelling drainage. 3. If the office is closed, call [facility] at [phone] and have your Surgeon paged. Condition at time of discharge: Good Good room.* Condition at time of discharge: Good Plan of Care Discharge Date 01/11/15 11:10am Disposition 01 DISCHARGED HOME, SELF-CARE Instructions/Education Provided How to Care for Your Navarro Catheter -- Male DI for Cystoscopy Prescriptions See Medications Section Functional Status Query Response Date Recorded Physical Hygiene Self January 11, 2015 8:59am Disabilities None January 11, 2015 8:59am Devices Used Glasses January 11, 2015 8:59am Dressing Self January 11, 2015 8:59am Ambulation Self January 11, 2015 8:59am Diet Self January 11, 2015 8:59am Mental Status Alert Oriented January 11, 2015 8:59am Disabilities None January 11, 2015 8:59am Devices Used Glasses January 11, 2015 8:59am Physical Hygiene Self January 11, 2015 8:59am Dressing Self January 11, 2015 8:59am Ambulation Self January 11, 2015 8:59am Diet Self January 11, 2015 8:59am Allergies, Adverse Reactions, Alerts Allergen Type Severity Reaction Status Last Updated Penicillin Allergy Unknown Active 01/05/15 Alprazolam Allergy Unknown Active 01/08/15 Orphenadrine Allergy Unknown Active 01/08/15 Doxycycline Allergy Unknown Active 01/08/15 Valacyclovir Allergy Unknown Active 01/08/15 flu shot Allergy Unknown Active 01/08/15 Immunizations Name Given Type Hx Influenza Vaccination No Historical Hx Pneumococcal Vaccination Y 5-6 yrs ago Historical Hx Influenza Vaccination No Historical Vital Signs Acute Vital Signs Vital Response Date/Time Temperature (Fahrenheit) 96.6 deg F (96.8 - 99.1) Temperature (Calculated Celsius) 35.31857 degrees C (36.0 - 37.3) Pulse Rate (adult) 50 bpm (60 - 100) Respiratory Rate 16 breaths/min (10 - 20) O2 Sat by Pulse Oximetry 94 % (90 - 100) Oxygen Delivery Method Room Air Blood Pressure 146/67 mm Hg Blood Pressure Source Automatic Cuff Height 5 ft 6 in Weight 138 lb Body Mass Index 22.0 kg/m^2 Results Test Source Date Result Interp. Ref. Range Comments Alanine Aminotransferase (ALT/SGPT) January 09, 2015 7:13am 19 U/L L 21- 72 COMMENT SCU will call Aspartate Amino Transf (AST/SGOT) January 09, 2015 7:13am 11 U/L L 17-59 COMMENT SCU will call Albumin/Globulin Ratio January 09, 2015 7:13am 1.4 RATIO N 1.1-2.2 COMMENT SCU will call Globulin January 09, 2015 7:13am 2.6 G/DL N 2.4-3.6 COMMENT SCU will call Albumin January 09, 2015 7:13am 3.7 G/DL N 3.5-5.0 COMMENT SCU will call Total Protein January 09, 2015 7:13am 6.3 G/DL N 6.3-8.2 COMMENT SCU will call Alkaline Phosphatase January 09, 2015 7:13am 53 U/L N 38-126 COMMENT SCU will call Total Bilirubin January 09, 2015 7:13am 0.80 MG/DL N 0.20-1.30 COMMENT SCU will call Calcium Level January 09, 2015 7:13am 9.1 MG/DL N 8.4-10.2 COMMENT SCU will call Calculated Osmolality January 09, 2015 7:13am 268 MOSM/KG N 261-280 COMMENT SCU will call Glucose Level January 09, 2015 7:13am 88 MG/DL N 75-110 COMMENT SCU will call Glomerular Filtration Rate Calc January 09, 2015 7:13am 63 - COMMENT SCU will call BUN/Creatinine Ratio January 09, 2015 7:13am 14 RATIO N 6-26 COMMENT SCU will call Creatinine January 09, 2015 7:13am 1.1 MG/DL N 0.8-1.5 COMMENT SCU will call Blood Urea Nitrogen January 09, 2015 7:13am 15.0 MG/DL N 9-20 COMMENT SCU will call Anion Gap January 09, 2015 7:13am 13 MEQ/L N 5-15 COMMENT SCU will call Carbon Dioxide Level January 09, 2015 7:13am 25 MEQ/L N 22-30 COMMENT SCU will call Chloride Level January 09, 2015 7:13am 101 MEQ/L N 98-107 COMMENT SCU will call Potassium Level January 09, 2015 7:13am 4.1 MEQ/L N 3.6-5 COMMENT SCU will call Sodium Level January 09, 2015 7:13am 139 MEQ/L N 134-144 COMMENT SCU will call Turbidity January 09, 2015 7:13am < 20 0-20 COMMENT SCU will call Chemistry Specimen Hemolysis January 09, 2015 7:13am < 15 0-25 0-25: No Hemolysis.26-70: Slight Hemolysis - can falsely elevate K and Urine Protein. 71-285: Moderate Hemolysis - can falsely elevate K, Troponin I, CA 19-9, PTH, CSF GLucose, and Urine Protein, and can falsely decrease Phenytoin. 286-999: Gross Hemolysis - can falsely elevate K, Troponin I, CA 19-9, PTH, CSF Glucose, and Urine Protine, and can falsely decrease Phenytoin. Recommend specimen recollection. Icterus Index January 09, 2015 7:13am < 2 0-7 COMMENT SCU will call Activated Partial Thromboplast Time January 09, 2015 7:13am 33.9 SEC N 24- 36 COMMENT SCU will call Prothromb Time International Ratio January 09, 2015 7:13am 0.99 N 0.81- 1.09 THERAPUTIC RANGE=2.00-3.00 FOR ANTI-THROMBOSIS THERAPUTIC RANGE=2.50- 3.50 FOR IMPLANTED VALVE Immature Granulocyte # (Auto) January 09, 2015 7:13am 0.00 T/MM3 N 0.00- 0.03 COMMENT SCU will call Basophils # (Auto) January 09, 2015 7:13am 0.0 T/MM3 N 0-0.2 COMMENT SCU will call Eosinophils # (Auto) January 09, 2015 7:13am 0.3 T/MM3 N 0-0.5 COMMENT SCU will call Monocytes # (Auto) January 09, 2015 7:13am 0.9 T/MM3 H 0-0.8 COMMENT SCU will call Lymphocytes # (Auto) January 09, 2015 7:13am 2.8 T/MM3 N 1-4.8 COMMENT SCU will call Neutrophils # (Auto) January 09, 2015 7:13am 3.9 T/MM3 N 1.8-7.7 COMMENT SCU will call Immature Granulocyte % (Auto) January 09, 2015 7:13am 0.0 % N 0.0-0.5 COMMENT SCU will call Basophils (%) (Auto) January 09, 2015 7:13am 0.5 % N 0-2 COMMENT SCU will call Eosinophils (%) (Auto) January 09, 2015 7:13am 3.1 % N 0-4 COMMENT SCU will call Monocytes (%) (Auto) January 09, 2015 7:13am 11.6 % H 0-9.0 COMMENT SCU will call Lymphocytes (%) (Auto) January 09, 2015 7:13am 35.4 % N 23-45 COMMENT SCU will call Neutrophils (%) (Auto) January 09, 2015 7:13am 49.4 % N 33-66 COMMENT SCU will call Mean Platelet Volume January 09, 2015 7:13am 9.9 UM3 N 9.4-12.4 COMMENT SCU will call Platelet Count January 09, 2015 7:13am 350 T/MM3 N 130-400 COMMENT SCU will call RDW Standard Deviation January 09, 2015 7:13am 45.4 FL N 36.9-50.2 COMMENT SCU will call Mean Corpuscular Hemoglobin Concent January 09, 2015 7:13am 32.4 GM/DL N 31-37 COMMENT SCU will call Mean Corpuscular Hemoglobin January 09, 2015 7:13am 30.9 UUG N 26-34 COMMENT SCU will call Mean Corpuscular Volume January 09, 2015 7:13am 95.4 UM3 N 80-100 COMMENT SCU will call Hematocrit January 09, 2015 7:13am 35.5 % L 41-53 COMMENT SCU will call Hemoglobin January 09, 2015 7:13am 11.5 GM/DL L 13.5-17.5 COMMENT SCU will call Red Blood Count January 09, 2015 7:13am 3.72 M/MM3 L 4.50-5.90 COMMENT SCU will call White Blood Count January 09, 2015 7:13am 7.9 T/MM3 N 4.5-11.0 COMMENT SCU will call Name: CAROLYN VALENZUELA Unit #: [id number] : 1925 Sex: M Loc / Svc: SRG DOS: 01/09/15 Signed Report #: [id number] DIAGNOSTIC IMAGING REPORT TYPE OF EXAM: RF RETROGRADE PYELOGRAM BILAT. Dictated By: KAYLAH BARR MD Indication: ITS.REASON: BILAT RETRO W/ RIGHT STENT INSERTION RF RETROGRADE PYELOGRAM BILAT.: Comparison: None Findings: 16 fluoroscopic spot images are submitted for interpretation. Images demonstrate bilateral retrograde ureterograms with injection of contrast into the left ureter. This appears mildly dilated without focal filling defect. Slight calyceal blunting. Injection of contrast into the right ureter shows evidence of contrast extravasation or intravasation adjacent to the renal pelvis. The superior pole calyces do not fill. There is advancement of a wire and angioplasty balloon into the right proximal ureter and ureteropelvic junction followed by placement of a double-J stent. Impression: Fluoroscopy as above. . Procedures Procedure Status Date Provider(s) Cystoscopic insertion of ureteral stent completed 01/09/15 NAGI ISIDRO MD Encounters Encounter Location Date/Time Discharged Inpatient [facility] 01/10/15 5:30pm Recent Diagnosis Renal mass Gross hematuria
[2016-12-23] MEDS ORDERED: FAMO20TA8 PO (18:52)
[2016-12-23 18:54] VITALS: BP 160/78; PULSE 76; RESP 18; TEMP 98.4; O2SAT 97
[2016-12-23] MEDS ORDERED: MORP30CA17 PO (19:22)
[2016-12-23] MEDS ORDERED: ONDANSETRON 4mg/2ml INJECTION IV PRN (21:45)
[2016-12-23] MEDS ORDERED: MORPHINE SULFATE 30 MG PO SCH (21:45)
--- NOTE | 2016-12-23 22:17 | HPPDOC ---
HPI - Adult Date DATE: 12/23/16 TIME: 22:05 General Chief Complaint: influenza B History of Present Illness The patient was transferred from [facility] emergency room in [place] with influenza B. He is an 89-year-old male with history of renal cell carcinoma who in the past underwent a right nephrectomy but then later developed metastatic disease. He is on chemotherapy and his last chemotherapy was approximately 3 weeks ago[address] He sees Dr. Caruso. The patient states that today he started "feeling like crap". He complains of mild shortness of breath, feverishness, achiness, sore throat, and cough with thick phlegm. He has nausea and had dry heaves today. He's had no diarrhea. He has history of constipation but none now. He states his legs get weak easily. In the emergency room at [facility] he had workup showing lactate of 0.9, influenza B positive, chest x-ray revealing no active cardiopulmonary disease. Sedimentation rate 88. Comprehensive metabolic was normal other than BUN of 19, sodium 128, chloride 94, liver enzymes were essentially normal. Creatinine was normal at 0.99 C-reactive protein was 77. White count was 3.3 with 54% neutrophils. Hemoglobin 9.0. Platelets 170. Rapid strep test was negative. CT chest done yesterday for follow-up of his cancer showed scattered somewhat irregular pulmonary opacities particularly apical regions, nonprogressive. No progressive adenopathy as visualized. CT abdomen demonstrates no evidence of visualized metastatic disease on this noncontrast study. Inflammatory process at the site of prior duodenal anal perforation continues to improve. The patient was given Tamiflu and 250 cc of normal saline and transferred to the [facility]. Past Medical History Past Medical History History of A. fib Heart catheterization 2009 which was normal Hypertension Lui's lung/COPD Renal cancer Surgical History Patient's Surgical History: Right nephrectomy The catheter placement tonsillectomy Inguinal hernia surgery and umbilical hernia surgery Cataract surgery Current Medications Home Meds Reported Medications Morphine Sulfate (Morphine Sulfate ER) 30 Mg Cap.er.pel, 1 PO Q8H 12/23/16 Famotidine (Famotidine) 20 Mg Tablet, 1 TAB PO BID, TAB 12/23/16 Ondansetron HCl (Zofran) 4 Mg Tablet, 4 MG PO Q8H, TAB 09/30/16 Oxycodone HCl (Oxycodone HCl) 15 Mg Tablet, 15 MG PO Q4HPRN, TAB 09/30/16 Finasteride (Proscar) 5 Mg Tablet, 1 TAB PO DAILY, TAB 09/30/16 Metoprolol Tartrate (Metoprolol Tartrate) 50 Mg Tablet, 50 MG PO BIDWM, TAB Take 1 tablet, by mouth, 2 times a day with meals. 09/30/16 Albuterol Sulfate (Albuterol Sulfate Hfa) 8.5 Gm Hfa.aer.ad, 2 PUFF INH Q4H, INHALER 01/09/15 Tamsulosin HCl (Flomax) 0.4 Mg Capsule, 0.4 MG PO HS 01/09/15 Discontinued Reported Medications Oxycodone HCl (Oxycontin) 10 Mg Tab.er.12h, 10 MG PO TID, TAB 09/30/16 Famotidine (Famotidine) 10 Mg Tablet, 1 TAB PO HS, TAB 09/30/16 Amlodipine Besylate (Norvasc) 10 Mg Tablet, 10 MG PO DAILY, TAB 09/30/16 Albuterol Sulfate (Albuterol Sulfate) 2.5 Mg/3 Ml Vial.neb, 2.5 MG AEROSOL PRN for ASTHMA 01/09/15 Budesonide/Formoterol Fumarate (Symbicort 160-4.5 Mcg Inhaler) 10.2 Gm Hfa.aer.ad, 2 PUFF PO BID 01/09/15 Allergies: Coded Allergies: Penicillins (Verified Allergy, Unknown, 09/30/16) alprazolam (Verified Allergy, Unknown, 09/30/16) doxycycline (Verified Allergy, Unknown, 09/30/16) orphenadrine (Verified Allergy, Unknown, 09/30/16) valacyclovir (Verified Allergy, Unknown, 09/30/16) Uncoded Allergies: flu shot (Allergy, Unknown, 01/08/15) Family History Family History: Mom of leukemia at age 77. Father of an GA at age 89 Social History Smoking Status: Former smoker Does patient use chewing tobac: No Second Hand Exposure: No Substance Use Type: does not use Alcohol Intake: none Marital Status: Advance Directives: Yes DNR, Yes DPOA for Healthcare Only (Pina Valenzuela, , Diallo Valenzuela, son) Review of Systems Unable to Obtain Comments Comprehensive review of systems is negative other than the above in history of present illness Physical Exam General Vital Signs Vital Signs Date Time Temp Pulse Resp B/P Pulse Ox O2 Delivery O2 Flow Rate FiO2 12/23/16 18:54 98.4 76 18 160/78 97 Room Air Height (Feet): 5 Height (Inches): 5.00 Comments GEN-alert, oriented, no acute distress, patient is cachectic HEENT-sclerae anicteric, pupils are equal, oropharynx is moist, mild erythema in the posterior pharynx NECK-supple CV-regular rate and rhythm CHEST-decreased breath sounds throughout ABD-soft, nontender, nondistended with positive bowel sounds -no [place] EXT-extremities are very thin, no edema NEURO-alert, oriented 3, no focal deficits SKIN-skin is thin but without rashes Neurologic RN Documented GCS Eye Opening: Verbal: Motor: Total: Assessment & Plan Assessment Impression Influenza B 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 Caruso Chloraseptic [place] for throat pain DO NOT RESUSCITATE per patient wishes, patient's is in agreement. DVT Prophylaxis: SCD'S Code Status Do Not Resuscitate Hospital Course Summary Disclaimer The hospital course summary below is not to be considered part of the above Progress Note. CAMILO PUENTES MD Dec 23, 2016 22:10
[2016-12-23] MEDS: ONDANSETRON 4 MG TABLET PO SCH (22:21)
[2016-12-23] MEDS: --POM--TAMSULOSIN 0.4 MG CAPSULE PO SCH (22:21)
[2016-12-23] MEDS: OXYCODONE I.R. 15 MG TABLET PO SCH (22:22)
[2016-12-23] MEDS: NORMAL SALINE 1,000 ML IV SCH (22:22)
[2016-12-23] MEDS: MORPHINE SULFATE SR 30 MG TABLET PO SCH (22:22)
[2016-12-24] VITALS (8 sets, daily range): BP systolic 120–184; BP diastolic 63–73; PULSE 51–76; RESP 16–18; TEMP 97.9–100.8; O2SAT 93–99
[2016-12-24] MEDS: ONDANSETRON 4 MG TABLET PO SCH ×3 (05:45→16:58)
[2016-12-24] MEDS: OXYCODONE I.R. 15 MG TABLET PO SCH ×6 (05:45→21:52)
[2016-12-24] MEDS: MORPHINE SULFATE SR 30 MG TABLET PO SCH ×3 (09:04→21:47)
[2016-12-24] MEDS: --POM--FAMOTIDINE 20 MG TABLET PO SCH ×2 (09:05→21:48)
[2016-12-24] MEDS: OSELTAMIVIR 75 MG CAPSULE PO SCH ×2 (09:05→21:47)
[2016-12-24] MEDS: --POM--METOPROLOL TARTRATE 50mg TABLET PO SCH ×2 (09:05→16:57)
[2016-12-24] MEDS: NORMAL SALINE 1,000 ML IV SCH ×2 (09:06→19:58)
[2016-12-24 09:37] LABS: HCT - HEMATOCRIT 28.2 % (41-53); HGB - HEMOGLOBIN 8.9 GM/DL (13.5-17.5); MEAN CORPUSCULAR HGB 30.7 UUG (26-34); MEAN CORPUSCULAR HGB CONC(MCHC 31.6 GM/DL (31-37); MEAN CORPUSCULAR VOLUME 97.2 UM3 (80-100); MEAN PLATELET VOLUME 9.2 UM3 (9.4-12.4); WBC - WHITE BLOOD COUNT 3.9 T/MM3 (4.5-11.0)
[2016-12-24 09:42] LABS: ALBUMIN 3.3 G/DL (3.5-5.0); ALBUMIN/GLOBULIN RATIO 1.1 RATIO (1.1-2.2); ALKALINE PHOSPHATASE 47 U/L (38-126); ALT (SGPT) 30 U/L (21-72); ANION GAP 9 MEQ/L (5-15); AST (SGOT) 18 U/L (17-59); BUN/CREATININE RATIO 20 RATIO (6-26); CALCIUM 8.1 MG/DL (8.4-10.2); CHLORIDE 95 MEQ/L (98-107); CO2 - CARBON DIOXIDE 25 MEQ/L (22-30); CREATININE 0.8 MG/DL (0.8-1.5); GLOMERULAR FILTRATION RATE 91; GLUCOSE 81 MG/DL (75-110); POTASSIUM 4.3 MEQ/L (3.6-5); SODIUM 129 MEQ/L (134-144); TOTAL PROTEIN 6.2 G/DL (6.3-8.2)
[2016-12-24 09:58] LABS: BAND NEUTROPHILS # 0.1 T/MM3; MONOCYTES # (MANUAL) 0.2 T/MM3 (0-0.8); NEUTROPHILS #(MANUAL)-ABSOLUTE 2.6 T/MM3 (1.8-7.7); TOTAL CELLS COUNTED 100 %
[2016-12-24 09:59] LABS: BURR CELLS 1+; POIKILOCYTOSIS 1+; TEAR DROP CELLS 1+
[2016-12-24 10:00] LABS: ANISOCYTOSIS 1+
[2016-12-24] MEDS ORDERED: ACETAMINOPHEN 325 MG TABLET PO ONE (10:15)
[2016-12-24] MEDS: ACETAMINOPHEN 325 MG TABLET PO PRN (11:53)
--- NOTE | 2016-12-24 13:25 | CONSPD ---
LONDON PATIÑO CUT OUT OPERATOR 12/24/16 1323: Consultation Info Date DATE: 12/24/16 TIME: 13:14 Date of Consultation: Dec 24, 2016 Attending Physician: Dr. Tracie Wick Reason for Consultation: renal pelvis carcinoma HPI - Adult Date DATE: 12/24/16 TIME: 13:14 General Chief Complaint: influenza B History of Present Illness Well-known 89-year-old male, patient of Dr. Caruso with metastatic renal pelvis carcinoma was admitted to [facility] yesterday with acute influenza. Has history of renal pelvis carcinoma diagnosed 2014, status post right nephrectomy. At time of diagnosis, was PET positive in kidney, had lung nodules , but lung nodules not positive on PET. He developed a mass in the duodenum August 2016, noted on CAT scan. A PET showed the mass in the duodenum. 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 Patient underwent concurrent chemoradiation with carbo Taxol. Tolerated fairly well. Received last Carboplatin/Taxol . Currently on observation and requires close follow-up. Has continued intermittent pain. His most recent CAT scan in December 2016 appeared stable, no progressive adenopathy and the inflammatory process at site of prior duodenal perforation continues to improve. At time of intake, patient reclining in hospital bed, eyes closed and opens eyes briefly when I speak to him, but minimal response. is at bedside; feels he's improved some, states he ate this morning and walked to the bathroom. Continues to be weak and is concerned about his lab results. Labs were reviewed with . Reassured his renal function is good at this time. (Patient with known acute renal failure in 2016.) Past Medical History Past Medical History History of A. fib Heart catheterization 2009 which was normal Hypertension Lui's lung/COPD Renal cancer Surgical History Patient's Surgical History: Right nephrectomy The catheter placement tonsillectomy Inguinal hernia surgery and umbilical hernia surgery Cataract surgery Current Medications Home Meds Reported Medications Morphine Sulfate (Morphine Sulfate ER) 30 Mg Cap.er.pel, 1 PO Q8H 12/23/16 Famotidine (Famotidine) 20 Mg Tablet, 1 TAB PO BID, TAB 12/23/16 Ondansetron HCl (Zofran) 4 Mg Tablet, 4 MG PO Q8H, TAB 09/30/16 Oxycodone HCl (Oxycodone HCl) 15 Mg Tablet, 15 MG PO Q4HR Y for PAIN 09/30/16 Finasteride (Proscar) 5 Mg Tablet, 1 TAB PO DAILY, TAB 09/30/16 Metoprolol Tartrate (Metoprolol Tartrate) 50 Mg Tablet, 50 MG PO BIDWM, TAB Take 1 tablet, by mouth, 2 times a day with meals. 09/30/16 Albuterol Sulfate (Albuterol Sulfate Hfa) 8.5 Gm Hfa.aer.ad, 2 PUFF INH Q4H, INHALER 01/09/15 Tamsulosin HCl (Flomax) 0.4 Mg Capsule, 0.4 MG PO HS 01/09/15 Discontinued Reported Medications Oxycodone HCl (Oxycontin) 10 Mg Tab.er.12h, 10 MG PO TID, TAB 09/30/16 Famotidine (Famotidine) 10 Mg Tablet, 1 TAB PO HS, TAB 09/30/16 Amlodipine Besylate (Norvasc) 10 Mg Tablet, 10 MG PO DAILY, TAB 09/30/16 Albuterol Sulfate (Albuterol Sulfate) 2.5 Mg/3 Ml Vial.neb, 2.5 MG AEROSOL PRN for ASTHMA 01/09/15 Budesonide/Formoterol Fumarate (Symbicort 160-4.5 Mcg Inhaler) 10.2 Gm Hfa.aer.ad, 2 PUFF PO BID 01/09/15 Allergies: Coded Allergies: Penicillins (Verified Allergy, Unknown, 09/30/16) alprazolam (Verified Allergy, Unknown, 09/30/16) doxycycline (Verified Allergy, Unknown, 09/30/16) orphenadrine (Verified Allergy, Unknown, 09/30/16) valacyclovir (Verified Allergy, Unknown, 09/30/16) Uncoded Allergies: flu shot (Allergy, Unknown, 01/08/15) Family History Family History: Mom of leukemia at age 77. Father of an NE at age 89 Maternal uncle prostate cancer, Maternal uncle with unknown cancer Social History Smoking Status: Former smoker Does patient use chewing tobac: No Second Hand Exposure: No Substance Use Type: does not use Alcohol Intake: none Marital Status: Advance Directives: Yes DNR, Yes DPOA for Healthcare Only (Pina Valenzuela, , Diallo Valenzuela, son) Review of Systems Constitutional: REPORTS: fatigue, fever, weakness, DENIES: chills Eyes Vision: DENIES: double vision, vision changes ENMT Mouth/Throat: REPORTS: sore throat, DENIES: sores Cardiovascular dyspnea on exertion, DENIES: chest pain Vascular: pedal edema, DENIES: intermittent claudication Pulmonary Respiratory: cough, dyspnea (on exertion), sputum GI Upper Abdomen: DENIES: heartburn/indigestion, nausea, vomiting Lower Abdomen: DENIES: blood in stool, diarrhea General: DENIES: dysuria, hematuria Musculoskeletal General: weakness, DENIES: joint pain Integumentary Skin: DENIES: rash, sores Neurological General: change in strength, weakness, DENIES: headache Psychiatric Psychiatric: irritability Endocrine DENIES: heat/cold intolerance Hematologic/Lymphatic anemia, easy bruising, DENIES: frequent nosebleeds Physical Exam General General Nourishment: thin, apparent age Vital Signs Vital Signs Date Time Temp Pulse Resp B/P Pulse Ox O2 Delivery O2 Flow Rate FiO2 12/24/16 11:40 99.9 63 18 123/63 95 Room Air Height (Feet): 5 Height (Inches): 5.00 Eyes Brief: FOUND: PERRL, NOT FOUND: scleral icterus ENMT Mouth/Dental/Tongue: FOUND: mucosa moist Pharynx: NOT FOUND: exudates Neck Brief: NOT FOUND: adenopathy, tenderness Respiratory Brief: FOUND: clear all key, NOT FOUND: wheezes Cardiovascular (brief) Cardiac Brief: FOUND: pedal edema, regular rate, regular rhythm Abdomen (brief) Abdominal Brief: FOUND: BS normo active x4, soft, NOT FOUND: hepatosplenomegaly Lymphatic (brief) Lymphatic Brief: NOT FOUND: adenopathy Musculoskeletal (brief) Musculoskeletal Brief: NOT FOUND: loss of motion, tenderness Integumentary (brief) Integumentary Brief: FOUND: dry, warm, NOT FOUND: rash Neurologic (brief) Neurological Brief: FOUND: cranial 2-12 intact, motor Neurologic RN Documented GCS Eye Opening: Verbal: Motor: Total: Psychiatric (brief) FOUND: alert, oriented, NOT FOUND: normal affect Laboratory Laboratory Tests Test 12/24/16 09:03 White Blood Count 3.9T/MM3 Red Blood Count 2.90M/MM3 Hemoglobin 8.9GM/DL Hematocrit 28.2% Mean Corpuscular Volume 97.2UM3 Mean Corpuscular Hemoglobin 30.7UUG Mean Corpuscular Hemoglobin Concent 31.6GM/DL RDW Standard Deviation 58.5FL Platelet Count 151T/MM3 Mean Platelet Volume 9.2UM3 Neutrophils % (Manual) 67.0% Band Neutrophils % 3.0% Lymphocytes % (Manual) 26.0% Monocytes % (Manual) 4.0% Absolute Neutrophils (Manual) 2.6T/MM3 Band Neutrophils # 0.1T/MM3 Lymphocytes # (Manual) 1.0T/MM3 Monocytes # (Manual) 0.2T/MM3 Poikilocytosis 1+ Anisocytosis 1+ Tear Drop Cells 1+ Herman Cells 1+ Red Cell Morphology Comment Abnormal Turbidity < 20 Sodium Level 129MEQ/L Potassium Level 4.3MEQ/L Chloride Level 95MEQ/L Carbon Dioxide Level 25MEQ/L Anion Gap 9MEQ/L Blood Urea Nitrogen 16.0MG/DL Creatinine 0.8MG/DL Glomerular Filtration Rate Calc 91 BUN/Creatinine Ratio 20RATIO Glucose Level 81MG/DL Calculated Osmolality 249MOSM/KG Calcium Level 8.1MG/DL Total Bilirubin 0.60MG/DL Icterus Index < 2 Aspartate Amino Transf (AST/SGOT) 18U/L Alanine Aminotransferase (ALT/SGPT) 30U/L Alkaline Phosphatase 47U/L Total Protein 6.2G/DL Albumin 3.3G/DL Globulin 2.9G/DL Albumin/Globulin Ratio 1.1RATIO Chemistry Specimen Hemolysis < 15 Impression/Recommendation Impression 1. 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 2. Acute influenza. 3. Hyponatremia 4. Vitamin B12 deficiency anemia. Last received Vit. B12 injection 12/22/16 Recommendation Continue supportive care. Follow labs. states patient declined Tylenol this morning. Informed patient/ when has elevated temperature I would recommend he take the Tylenol. ELVIRA CARUSO 12/24/16 1957: HPI - Adult Date 12/24/16:19: 57 General Chief Complaint: influenza B History of Present Illness Squamous cell carcinoma of the renal pelvis status post nephrectomy in 2014. Local recurrence and lymph nodes with perforation of the duodenum of the squamous cell carcinoma August 2016 with upper endoscopy September 2016 demonstrating perforation of the duodenum. Status post treatment with radiation therapy and weekly Taxol and carboplatinum from September through November 2016 Past Medical History Current Medications Home Meds Reported Medications Morphine Sulfate (Morphine Sulfate ER) 30 Mg Cap.er.pel, 1 PO Q8H 12/23/16 Famotidine (Famotidine) 20 Mg Tablet, 1 TAB PO BID, TAB 12/23/16 Ondansetron HCl (Zofran) 4 Mg Tablet, 4 MG PO Q8H, TAB 09/30/16 Oxycodone HCl (Oxycodone HCl) 15 Mg Tablet, 15 MG PO Q4HR Y for PAIN 09/30/16 Finasteride (Proscar) 5 Mg Tablet, 1 TAB PO DAILY, TAB 09/30/16 Metoprolol Tartrate (Metoprolol Tartrate) 50 Mg Tablet, 50 MG PO BIDWM, TAB Take 1 tablet, by mouth, 2 times a day with meals. 09/30/16 Albuterol Sulfate (Albuterol Sulfate Hfa) 8.5 Gm Hfa.aer.ad, 2 PUFF INH Q4H, INHALER 01/09/15 Tamsulosin HCl (Flomax) 0.4 Mg Capsule, 0.4 MG PO HS 01/09/15 Discontinued Reported Medications Oxycodone HCl (Oxycontin) 10 Mg Tab.er.12h, 10 MG PO TID, TAB 09/30/16 Famotidine (Famotidine) 10 Mg Tablet, 1 TAB PO HS, TAB 09/30/16 Amlodipine Besylate (Norvasc) 10 Mg Tablet, 10 MG PO DAILY, TAB 09/30/16 Albuterol Sulfate (Albuterol Sulfate) 2.5 Mg/3 Ml Vial.neb, 2.5 MG AEROSOL PRN for ASTHMA 01/09/15 Budesonide/Formoterol Fumarate (Symbicort 160-4.5 Mcg Inhaler) 10.2 Gm Hfa.aer.ad, 2 PUFF PO BID 01/09/15 Allergies: Coded Allergies: Penicillins (Verified Allergy, Unknown, 09/30/16) alprazolam (Verified Allergy, Unknown, 09/30/16) doxycycline (Verified Allergy, Unknown, 09/30/16) orphenadrine (Verified Allergy, Unknown, 09/30/16) valacyclovir (Verified Allergy, Unknown, 09/30/16) Uncoded Allergies: flu shot (Allergy, Unknown, 01/08/15) Impression/Recommendation Impression Patient examined, chart reviewed, agree with documentation of Caren Patiño. Item Value Date Time White Blood Count 3.9 T/MM3 L 12/24/16902 Hemoglobin 8.9 GM/DL L 12/24/16902 Platelet Count 151 T/MM3 12/24/16902 Sodium Level 129 MEQ/L L 12/24/16902 Creatinine 0.8 MG/DL 12/24/16902 Calculated Osmolality 249 MOSM/KG L 12/24/16902 Calcium Level 8.1 MG/DL L 12/24/16902 WBC low at 3.9. This is probably secondary to viral infection. We'll follow CBC in the morning. Continue supportive care. LONDON PATIÑO APRN Dec 24, 2016 13:23 ELVIRA CARUSO Dec 24, 2016 19:57
[2016-12-24] MEDS ORDERED: PNEUMOCOCCAL VAC. ADMIN. CHARGE INJ ONE (14:30)
--- NOTE | 2016-12-24 14:37 | PNPDOC ---
Subjective Date DATE: 12/24/16 TIME: 14:29 Subjective The patient is seen in his room accompanied by his . He states he feels a little better today. He still complains of feeling weak, drowsy and achy. His appetite is still poor. Sore throat is improving. He has mild shortness of breath and continues to have a cough with productive phlegm. He has had occasional fevers. No vomiting. No diarrhea. He is urinating okay. He continues to be on IV fluids. Objective Vital Signs Vital signs Vital Signs Date Time Temp Pulse Resp B/P Pulse Ox O2 Delivery O2 Flow Rate FiO2 12/24/16 11:40 99.9 63 18 123/63 95 Room Air GEN-mildly drowsy, mildly slow to respond to questions, sitting up in bed, no acute distress HEENT-sclera anicteric, oropharynx is moist NECK-supple CV-regular rate and rhythm CHEST-decreased breath sounds throughout, no wheezes or rhonchi ABD-soft, nontender, nondistended with positive bowel sounds -no [place] EXT-no edema, SCDs are on NEURO-mildly slow to respond, no focal deficits SKIN-warm and dry and without rashes Height (Feet): 5 Height (Inches): 5.00 Weight (Kilograms): 44.500 Laboratory Laboratory Item Value Date Time Absolute Neutrophils (Manual) 2.6 T/MM3 12/24/16 0903 Band Neutrophils % 3.0 % 12/24/16 0903 Neutrophils % (Manual) 67.0 % H 12/24/16 0903 Laboratory Tests 12/24/16 09:03 Laboratory Tests 12/24/16 09:03 Assessment & Plan Assessment 12/24/2016 Impression/plan Influenza B-continue Tamiflu Renal cell carcinoma with metastasis on chemotherapy-Dr. Caruso has been consulted Immunosuppression -last chemotherapy approximately 3 weeks ago, per Dr. Caruso' s OWNER/PHOTOGRAPHER Caren, his chemotherapy has been completed leukopenia without neutropenia -continue to monitor Anemia-stable Chronic pain on chronic narcotics-continue pain medication as needed, avoid oversedation Hyponatremia-slight improvement Generalized weakness-PT and OT for strengthening Anorexia-continue IV fluids, but at decreased rate Repeat lab work tomorrow, discussed with case management and the patient and his . Will change to inpatient status. DVT Prophylaxis: SCD'S Code Status Do Not Resuscitate Hospital Course Summary Disclaimer The hospital course summary below is not to be considered part of the above Progress Note. Hospital Course Summary 12/23/2016 Impression Influenza B 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 Caruso Chloraseptic [place] for throat pain DO NOT RESUSCITATE per patient wishes, patient's is in agreement. CAMILO PUENTES MD Dec 24, 2016 14:32
[2016-12-24] MEDS ORDERED: PNEUMOCOCCAL 23 VACCINE 0.5 ML VIAL IM ONE (15:00)
[2016-12-24] MEDS: ALBUTEROL/IPRATROPIUM INHAL. 2.5mg-0.5mg/3ml Neb. AEROSOL PRN ×2 (16:55→20:21)
[2016-12-24] MEDS: --POM--FINASTERIDE 5 MG TABLET PO SCH (21:48)
[2016-12-24] MEDS: --POM--TAMSULOSIN 0.4 MG CAPSULE PO SCH (21:48)
[2016-12-25] VITALS (8 sets, daily range): BP systolic 132–190; BP diastolic 64–77; PULSE 53–69; RESP 16–20; TEMP 95.7–100.4; O2SAT 94–98
[2016-12-25] MEDS: ONDANSETRON 4 MG TABLET PO SCH ×3 (00:39→17:26)
[2016-12-25] MEDS: ACETAMINOPHEN 325 MG TABLET PO PRN (00:40)
[2016-12-25] MEDS: OXYCODONE I.R. 15 MG TABLET PO SCH ×5 (01:53→17:48)
[2016-12-25] MEDS: ALBUTEROL/IPRATROPIUM INHAL. 2.5mg-0.5mg/3ml Neb. AEROSOL PRN ×2 (03:17→19:33)
[2016-12-25] MEDS: SORE THROAT SPRAY 20ml PO PRN (04:00)
[2016-12-25 05:11] LABS: HCT - HEMATOCRIT 24.9 % (41-53); HGB - HEMOGLOBIN 7.9 GM/DL (13.5-17.5); MEAN CORPUSCULAR HGB 30.7 UUG (26-34); MEAN CORPUSCULAR HGB CONC(MCHC 31.7 GM/DL (31-37); MEAN CORPUSCULAR VOLUME 96.9 UM3 (80-100); MEAN PLATELET VOLUME 9.2 UM3 (9.4-12.4); RED BLOOD COUNT 2.57 M/MM3 (4.50-5.90); WBC - WHITE BLOOD COUNT 4.5 T/MM3 (4.5-11.0)
[2016-12-25 05:13] LABS: ALBUMIN 2.8 G/DL (3.5-5.0); ANION GAP 9 MEQ/L (5-15); BUN/CREATININE RATIO 20 RATIO (6-26); CALCIUM 7.8 MG/DL (8.4-10.2); CHLORIDE 96 MEQ/L (98-107); CO2 - CARBON DIOXIDE 22 MEQ/L (22-30); CREATININE 0.8 MG/DL (0.8-1.5); GLOMERULAR FILTRATION RATE 91; GLUCOSE 109 MG/DL (75-110); PHOSPHORUS 3.2 MG/DL (2.5-4.5); POTASSIUM 3.6 MEQ/L (3.6-5); SODIUM 127 MEQ/L (134-144)
[2016-12-25 06:06] LABS: ANISOCYTOSIS 1+; BAND NEUTROPHILS # 0.2 T/MM3; MONOCYTES # (MANUAL) 0.2 T/MM3 (0-0.8); NEUTROPHILS #(MANUAL)-ABSOLUTE 3.1 T/MM3 (1.8-7.7); POIKILOCYTOSIS 1+; TOTAL CELLS COUNTED 100 %
[2016-12-25] MEDS: NORMAL SALINE 1,000 ML IV SCH (06:20)
[2016-12-25] MEDS: MORPHINE SULFATE SR 30 MG TABLET PO SCH ×3 (07:57→21:21)
[2016-12-25] MEDS: --POM--FAMOTIDINE 20 MG TABLET PO SCH ×2 (07:57→21:21)
[2016-12-25] MEDS: --POM--METOPROLOL TARTRATE 50mg TABLET PO SCH ×2 (07:57→17:26)
[2016-12-25] MEDS: OSELTAMIVIR 75 MG CAPSULE PO SCH (07:57)
--- NOTE | 2016-12-25 09:26 | PNPDOC ---
LONDON LUND LOADER 12/25/16 0924: Subjective Date DATE: 12/25/16 TIME: 09:21 Sitting in chair in room. He is more alert today. Max temperature past 24 hours 100.4 at 00:00 today. Continues to complain of weakness, nasal congestion, intermittent productive cough of clear to light brown mucus. Eating and drinking fair. States voiding normally. No BM today. Appears tired. General: + fever Eyes: No redness, no pain, no diplopia ENT: + nasal congestion No mouth sores, no trouble swallowing Cardiac: No chest pain no palpitations Pulmonary: + productive cough.no shortness of breath, no wheezing Abdomen: No pain, no nausea vomiting, no diarrhea or constipation : No urgency, frequency, dysuria, or hematuria Musculoskeletal: Generalized weakness. No arthritis, no myalgias Neurological: No headaches, no focal weakness Skin: No rash, no sores Psychiatric: No anxiety, no depression Objective Vital Signs Vital Signs 12/25/16 12/25/16 12/25/16 12/25/16 00:00 03:12 03:12 03:21 Temp 100.4 Pulse 65 76 70 Resp 18 16 B/P 159/72 Pulse Ox 97 95 O2 Delivery Room Air 12/25/16 12/25/16 04:03 07:18 Temp 98.9 97.5 Pulse 69 61 Resp 18 18 B/P 132/64 134/66 Pulse Ox 96 97 O2 Delivery Room Air Room Air Height (Feet): 5 Height (Inches): 5.00 Weight (Kilograms): 46.000 General Alert, No Acute Distress, Other (thin), Looks Stated Age Eyes (Brief) Eyes: FOUND: EOMI, PERRL, NOT FOUND: scleral icterus ENMT (Brief) ENMT: NOT FOUND: lesions, mucosa moist Neck (Brief) Neck: NOT FOUND: adenopathy, tenderness Respiratory (Brief) Respiratory: FOUND: clear all key, equal bilaterally, NOT FOUND: wheezes Cardiovascular (Brief) Cardiac: FOUND: pedal edema (trace pedal edema. No upper extremity edema), regular rate, regular rhythm Abdomen (Brief) Abdominal: FOUND: BS normo active x4, soft, tender (mild tenderness with exam) , NOT FOUND: hepatosplenomegaly Musculoskeletal (Brief) NOT FOUND: loss of motion, tenderness Integumentary (Brief) FOUND: dry, warm, NOT FOUND: rash Neurologic (Brief) FOUND: cranial 2-12 intact, motor (moves all 4 extremities.) Psychiatric (Brief) FOUND: alert, attentive, oriented, NOT FOUND: normal affect (appears tired- closes eyes intermittently) Laboratory Laboratory Tests Test 12/25/16 04:25 White Blood Count 4.5T/MM3 Red Blood Count 2.57M/MM3 Hemoglobin 7.9GM/DL Hematocrit 24.9% Mean Corpuscular Volume 96.9UM3 Mean Corpuscular Hemoglobin 30.7UUG Mean Corpuscular Hemoglobin Concent 31.7GM/DL RDW Standard Deviation 56.6FL Platelet Count 119T/MM3 Mean Platelet Volume 9.2UM3 Neutrophils % (Manual) 69.0% Band Neutrophils % 5.0% Lymphocytes % (Manual) 22.0% Monocytes % (Manual) 4.0% Absolute Neutrophils (Manual) 3.1T/MM3 Band Neutrophils # 0.2T/MM3 Lymphocytes # (Manual) 1.0T/MM3 Monocytes # (Manual) 0.2T/MM3 Poikilocytosis 1+ Anisocytosis 1+ Red Cell Morphology Comment Abnormal Turbidity < 20 Sodium Level 127MEQ/L Potassium Level 3.6MEQ/L Chloride Level 96MEQ/L Carbon Dioxide Level 22MEQ/L Anion Gap 9MEQ/L Blood Urea Nitrogen 16.0MG/DL Creatinine 0.8MG/DL Glomerular Filtration Rate Calc 91 BUN/Creatinine Ratio 20RATIO Glucose Level 109MG/DL Calculated Osmolality 247MOSM/KG Calcium Level 7.8MG/DL Phosphorus Level 3.2MG/DL Icterus Index < 2 Albumin 2.8G/DL Chemistry Specimen Hemolysis < 15 Assessment & Plan Assessment 1. 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 2. Acute influenza. 3. Hyponatremia 4. Anemia/multifactorial. Dilutional/ Vitamin B12 deficiency anemia. Last received Vit. B12 injection 12/22/16. ? Chronic blood loss from inflammatory process @ prior duodenal perforation.( see CT scan 12/22/16) Plan/Intensity of Service Continue supportive care. Follow counts. Will give 2 U PRBC's today. Discussed w / patient/ and Dr. Hinojosa. Code Status Do Not Resuscitate Hospital Course Summary Disclaimer The visit summary below is not to be considered part of the above Progress Note. Hospital Course Summary 12/23/2016 Impression Influenza B 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 Caruso Chloraseptic [place] for throat pain DO NOT RESUSCITATE per patient wishes, patient's is in agreement. ELVIRA CARUSO 12/25/16 1731: Objective Laboratory Item Value Date Time Hemoglobin 7.9 GM/DL L # 12/25/16424 Hemoglobin 8.9 GM/DL L 12/24/16 09 White Blood Count 4.5 T/MM3 12/25/16424 White Blood Count 3.9 T/MM3 L 12/24/16 0903 Neutrophils % (Manual) 69.0 % H 12/25/16 0425 Band Neutrophils % 5.0 % 12/25/16 0425 Lymphocytes % (Manual) 22.0 % L 12/25/16 0425 Platelet Count 119 T/MM3 L 12/25/16 0425 Creatinine 0.8 MG/DL 12/25/165 Sodium Level 127 MEQ/L L 12/25/16 042 Assessment & Plan Assessment Patient examined, chart reviewed, agree with documentation by Caren Lund. I participated in the development of plan of care of this patient. Hemoglobin had dropped to 7.9. Will transfuse with 2 units of packed red blood cells. Continues to feel bad from influenza. Still hoarse. We'll continue supportive care and Tamiflu. Sodium is dropping of uncertain etiology. Will continue to follow closely LONDON LUND APRN Dec 25, 2016 09:24 ELVIRA CARUSO Dec 25, 2016 17:31
[2016-12-25] MEDS ORDERED: DiphenhydrAMINE 25 MG CAPSULE PO ONE (09:45)
[2016-12-25] MEDS ORDERED: ACETAMINOPHEN 325 MG TABLET PO ONE (09:45)
[2016-12-25] MEDS: NORMAL SALINE 500 ML IV SCH ×2 (12:33→15:44)
--- NOTE | 2016-12-25 17:56 | PNPDOC ---
Subjective Date DATE: 12/25/16 TIME: 17:48 Subjective The patient is seen today in his room accompanied by his daughter. He is sitting up eating supper. He is slow to respond to questions and sometimes does not respond. He's been sleeping most of the afternoon, possibly secondary to Benadryl given for premedication prior to transfusion. He denies shortness of breath. He states he is feeling better. His cough is better. He thinks he is getting enough to eat. He does have some pain but this appears to be controlled. He has not had a bowel movement this hospitalization. He has had 2 incontinent voids today. Hemoglobin was 7.[address] Caruso ordered 2 units of blood. Objective Vital Signs Vital signs Vital Signs Date Time Temp Pulse Resp B/P Pulse Ox O2 Delivery O2 Flow Rate FiO2 12/25/16 15:52 98.2 55 16 151/70 96 Room Air GEN-drowsy but in no acute distress HEENT-clear anicteric, oropharynx is moist NECK-supple CV-regular rate and rhythm CHEST-decreased breath sounds throughout ABD-soft, nontender with positive bowel sounds -no [place] EXT-no edema NEURO-drowsy but no focal deficits SKIN-warm and dry and without rashes Height (Feet): 5 Height (Inches): 5.00 Weight (Kilograms): 46.000 Laboratory Laboratory Laboratory Tests 12/24/16 09:03 12/25/16 04:25 Laboratory Tests 12/24/16 09:03 12/25/16 04:25 Assessment & Plan Assessment 12/25/2016 Impression/plan Influenza B-continue Tamiflu but pharmacy recommends decreased dose based on GFR Metastatic squamous cell cancer of the renal pelvis with metastasis on chemotherapy-Dr. Caruso has been consulted Immunosuppression -last chemotherapy approximately 3 weeks ago, per Dr. Caruso' s INTERNET ARCHITECT Caren, his chemotherapy has been completed leukopenia without neutropenia -continue to monitor Anemia-drop in hemoglobin from 8.9-7.9 is likely in part dilutional. 2 units of blood being transfused today. Chronic pain on chronic narcotics-continue pain medication as needed, will change oxycodone to every 4 hours as needed instead of scheduled because of his excessive drowsiness Hyponatremia-slightly worse today, possibly secondary to IV fluids. DC IV fluids Generalized weakness-PT and OT for strengthening Anorexia with poor by mouth intake-improving Repeat CBC and basic metabolic profile tomorrow. Discontinue IV fluids today. Change oxycodone to when necessary. Possible discharge tomorrow. Discussed with the patient's daughter, Caren Ashely GRIGGS for Dr. Caruso, and patient's nurse. DVT Prophylaxis: SCD'S Code Status Do Not Resuscitate Hospital Course Summary Disclaimer The hospital course summary below is not to be considered part of the above Progress Note. Hospital Course Summary 12/23/2016 Impression Influenza B 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 Caruso Chloraseptic [place] for throat pain DO NOT RESUSCITATE per patient wishes, patient's is in agreement. 12/24/2016 Impression/plan Influenza B-continue Tamiflu Renal cell carcinoma with metastasis on chemotherapy-Dr. Caruso has been consulted Immunosuppression -last chemotherapy approximately 3 weeks ago, per Dr. Caruso' s INDU Caren, his chemotherapy has been completed leukopenia without neutropenia -continue to monitor Anemia-stable Chronic pain on chronic narcotics-continue pain medication as needed, avoid oversedation Hyponatremia-slight improvement Generalized weakness-PT and OT for strengthening Anorexia-continue IV fluids, but at decreased rate Repeat lab work tomorrow, discussed with case management and the patient and his . Will change to inpatient status. CAMILO PUENTES MD Dec 25, 2016 17:51
[2016-12-25] MEDS ORDERED: POLYETHYL.GLYCOL 3350 PACKET 17gm PO ONE (18:00)
[2016-12-25 19:08] LABS: HGB - HEMOGLOBIN 11.2 GM/DL (13.5-17.5)
[2016-12-25] MEDS: OSELTAMIVIR 30 MG CAPSULE PO SCH (21:20)
[2016-12-25] MEDS: --POM--FINASTERIDE 5 MG TABLET PO SCH (21:22)
[2016-12-25] MEDS: --POM--TAMSULOSIN 0.4 MG CAPSULE PO SCH (21:22)
[2016-12-25] MEDS ORDERED: OXYCODONE I.R. 15 MG TABLET PO PRN (21:45)
[2016-12-26 00:08] VITALS: BP 153/82; PULSE 58; RESP 20; TEMP 99.2; O2SAT 97
[2016-12-26] MEDS: ONDANSETRON 4 MG TABLET PO SCH ×2 (01:00→09:50)
[2016-12-26] MEDS: SORE THROAT SPRAY 20ml PO PRN ×2 (04:10→06:23)
[2016-12-26 04:12] VITALS: PULSE 58; RESP 20; TEMP 98.8; O2SAT 97
[2016-12-26 07:30] VITALS: BP 195/80; PULSE 62; RESP 18; TEMP 98.7; O2SAT 97
[2016-12-26 07:31] VITALS: BP 179/85
[2016-12-26 08:51] VITALS: PULSE 62; RESP 18
[2016-12-26] MEDS ORDERED: POLYETHYL.GLYCOL 3350 PACKET 17gm PO SCH (09:00)
[2016-12-26] MEDS: OSELTAMIVIR 30 MG CAPSULE PO SCH (09:50)
[2016-12-26] MEDS: --POM--FAMOTIDINE 20 MG TABLET PO SCH (09:51)
[2016-12-26] MEDS: MORPHINE SULFATE SR 30 MG TABLET PO SCH (09:51)
[2016-12-26] MEDS: --POM--METOPROLOL TARTRATE 50mg TABLET PO SCH (09:51)
[2016-12-26 10:15] LABS: HCT - HEMATOCRIT 38.2 % (41-53); HGB - HEMOGLOBIN 12.7 GM/DL (13.5-17.5)
[2016-12-26 10:25] LABS: ANION GAP 10 MEQ/L (5-15); BUN/CREATININE RATIO 16 RATIO (6-26); CALCIUM 8.4 MG/DL (8.4-10.2); CHLORIDE 94 MEQ/L (98-107); CO2 - CARBON DIOXIDE 26 MEQ/L (22-30); CREATININE 0.8 MG/DL (0.8-1.5); GLOMERULAR FILTRATION RATE 91; GLUCOSE 108 MG/DL (75-110); POTASSIUM 3.9 MEQ/L (3.6-5); SODIUM 130 MEQ/L (134-144)
[2016-12-26 11:38] VITALS: BP 154/71; PULSE 53; RESP 16; TEMP 97.6; O2SAT 98
[2016-12-26] MEDS ORDERED: OSEL30CA2 PO (12:34)
--- NOTE | 2016-12-26 13:10 | PNPDOC ---
Subjective Date DATE: 12/26/16 TIME: 13:09 Sitting in chair, alone in room. Continues to be drowsy at times, but alert and responds appropriately to questions. Denies fever, chills, no headache or vision changes. Continues to have nasal congestion and intermittent productive cough. Denies worsening symptoms. Continues with decreased appetite, no nausea or vomiting. He is voiding normally, reports normal bowel movement today. General: No fever, no night sweats Eyes: No redness, no pain, no diplopia ENT: + nasal congestion, Cardiac: No chest pain no palpitations Pulmonary: Positive cough, intermittently productive, no shortness of breath, no wheezing Abdomen: No pain, no nausea vomiting, no diarrhea or constipation : No urgency, frequency, dysuria, or hematuria Musculoskeletal: No arthritis, no myalgias Neurological: No headaches, no focal weakness Skin: No rash, no sores Psychiatric: No anxiety, no depression Objective Vital Signs Vital Signs 12/26/16 12/26/16 12/26/16 12/26/16 04:12 07:30 07:31 08:51 Temp 98.8 98.7 Pulse 58 62 62 Resp 20 18 18 B/P 195/80 179/85 Pulse Ox 97 97 O2 Delivery Room Air Room Air 12/26/16 11:38 Temp 97.6 Pulse 53 Resp 16 B/P 154/71 Pulse Ox 98 O2 Delivery Room Air Height (Feet): 5 Height (Inches): 5.00 Weight (Kilograms): 45.500 General Alert, Orientated x 2, No Acute Distress Eyes (Brief) Eyes: FOUND: EOMI, PERRL, NOT FOUND: scleral icterus ENMT (Brief) ENMT: NOT FOUND: lesions, mucosa moist Neck (Brief) Neck: NOT FOUND: adenopathy, tenderness Respiratory (Brief) Respiratory: FOUND: clear all key, equal bilaterally, NOT FOUND: wheezes Cardiovascular (Brief) Cardiac: FOUND: pedal edema (trace pedal edema. No upper extremity edema), regular rate, regular rhythm Abdomen (Brief) Abdominal: FOUND: BS normo active x4, soft, NOT FOUND: hepatosplenomegaly, tender Musculoskeletal (Brief) NOT FOUND: loss of motion, tenderness Integumentary (Brief) FOUND: dry, warm, NOT FOUND: rash Neurologic (Brief) FOUND: cranial 2-12 intact, motor (moves all 4 extremities.) Psychiatric (Brief) FOUND: alert, attentive, normal affect, oriented Laboratory Laboratory Tests Test 12/25/16 19:01 12/26/16 10:08 Hemoglobin 11.2GM/DL 12.7GM/DL Hematocrit 38.2% Turbidity < 20 Sodium Level 130MEQ/L Potassium Level 3.9MEQ/L Chloride Level 94MEQ/L Carbon Dioxide Level 26MEQ/L Anion Gap 10MEQ/L Blood Urea Nitrogen 13.0MG/DL Creatinine 0.8MG/DL Glomerular Filtration Rate Calc 91 BUN/Creatinine Ratio 16RATIO Glucose Level 108MG/DL Calculated Osmolality 252MOSM/KG Calcium Level 8.4MG/DL Icterus Index < 2 Chemistry Specimen Hemolysis < 15 Assessment & Plan Assessment 1. 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 2. Acute influenza. Slowly improving. Afebrile for greater than 24 hours. 3. Hyponatremia, improved 4. Anemia/multifactorial. Dilutional/ Vitamin B12 deficiency anemia. Last received Vit. B12 injection 12/22/16. Good response from packed RBCs given yesterday. Hemoglobin today 12.7 Plan/Intensity of Service Planning dismissal to home today per Dr. Calles. Oncology okay with dismissal. Reviewed with patient follow-up with Dr. Caruso as scheduled. Patient has no questions. Code Status Do Not Resuscitate Hospital Course Summary Disclaimer The visit summary below is not to be considered part of the above Progress Note. Hospital Course Summary 12/23/2016 Impression Influenza B 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 Caruso Chloraseptic [place] for throat pain DO NOT RESUSCITATE per patient wishes, patient's is in agreement. 12/24/2016 Impression/plan Influenza B-continue Tamiflu Renal cell carcinoma with metastasis on chemotherapy-Dr. Caruso has been consulted Immunosuppression -last chemotherapy approximately 3 weeks ago, per Dr. Caruso' s [employer] Caren, his chemotherapy has been completed leukopenia without neutropenia -continue to monitor Anemia-stable Chronic pain on chronic narcotics-continue pain medication as needed, avoid oversedation Hyponatremia-slight improvement Generalized weakness-PT and OT for strengthening Anorexia-continue IV fluids, but at decreased rate Repeat lab work tomorrow, discussed with case management and the patient and his . Will change to inpatient status. LONDON PATIÑO APRN Dec 26, 2016 13:10
[2016-12-26] MEDS ORDERED: HEPARIN SUB-Q 5,000 unit/0.5ml vial SQ ONE (13:45)
--- NOTE | 2016-12-26 17:00 | DSPDOC ---
General Date Date DATE: 12/26/16 TIME: 16:38 Attending Physician Tracie Wick MD Admitting Physician Tracie Wick MD Consulting Physician González Caruso Admitting Diagnosis influenza and immunosuppression Discharge Diagnosis 1. Influenza B 2. Hyponatremia, chronic 3. Anemia, multifactorial 4. Leukopenia 5. Metastatic squamous cell carcinoma of the renal pelvis 6. Immune suppressed patient 7. Chronic pain 8. Generalized weakness 9. CKD, stage II Laboratory Laboratory Tests Test 12/25/16 19:01 12/26/16 10:08 Hemoglobin 11.2GM/DL (13.5-17.5) 12.7GM/DL (13.5-17.5) Hematocrit 38.2% (41-53) Turbidity < 20 (0-20) Sodium Level 130MEQ/L (134-144) Potassium Level 3.9MEQ/L (3.6-5) Chloride Level 94MEQ/L (98-107) Carbon Dioxide Level 26MEQ/L (22-30) Anion Gap 10MEQ/L (5-15) Blood Urea Nitrogen 13.0MG/DL (9-20) Creatinine 0.8MG/DL (0.8-1.5) Glomerular Filtration Rate Calc 91 BUN/Creatinine Ratio 16RATIO (6-26) Glucose Level 108MG/DL (75-110) Calculated Osmolality 252MOSM/KG (261-280) Calcium Level 8.4MG/DL (8.4-10.2) Icterus Index < 2 (0-7) Chemistry Specimen Hemolysis < 15 (0-25) White count on admission was 3.9 with 67% neutrophils; hemoglobin 8.9 wrapping to 7.9 on 12/25. Admission sodium 129, liver enzymes unremarkable. History of Present Illness The patient was transferred from [facility] emergency room in [place] with influenza B. He is an 89-year-old male with history of renal cell carcinoma who in the past underwent a right nephrectomy but then later developed metastatic disease. He is on chemotherapy and his last chemotherapy was approximately 3 weeks ago[address] He sees Dr. Caruso. The patient states that today he started "feeling like crap". He complains of mild shortness of breath, feverishness, achiness, sore throat, and cough with thick phlegm. He has nausea and had dry heaves today. He's had no diarrhea. He has history of constipation but none now. He states his legs get weak easily. In the emergency room at [facility] he had workup showing lactate of 0.9, influenza B positive, chest x-ray revealing no active cardiopulmonary disease. Sedimentation rate 88. Comprehensive metabolic was normal other than BUN of 19, sodium 128, chloride 94, liver enzymes were essentially normal. Creatinine was normal at 0.99 C-reactive protein was 77. White count was 3.3 with 54% neutrophils. Hemoglobin 9.0. Platelets 170. Rapid strep test was negative. CT chest done yesterday for follow-up of his cancer showed scattered somewhat irregular pulmonary opacities particularly apical regions, nonprogressive. No progressive adenopathy as visualized. CT abdomen demonstrates no evidence of visualized metastatic disease on this noncontrast study. Inflammatory process at the site of prior duodenal anal perforation continues to improve. The patient was given Tamiflu and 250 cc of normal saline and transferred to the [facility]. Hospital Course Impression- Influenza B Renal cell carcinoma with metastasis on chemotherapy Immunosuppression leukopenia without neutropenia Anemia Chronic pain on chronic narcotics Hyponatremia Anemia CKD, stage 2 Hospital course- Mr. Valenzuela was initially hospitalized on observation status and Tamiflu was initiated with dose adjusted for impaired renal function by pharmacy. He was treated with IV fluids, Zofran for nausea, and home medications were continued. Dr. Caruso was consulted. Hemoglobin dropped with hydration requiring transfusion of 2 units of packed red blood cells. Sodium dropped 127 on 12/25. Given evolving lab abnormalities patient was converted to an inpatient on 12/25. Hemoglobin and sodium were both improved on 12/26; Mr. Valenzuela continue describe generalized achiness consistent with "the flu" with mild chronic dyspnea but no cough or sputum production. He denied fevers and none of been reported by nursing. He is ambulating short distances with a walker and case management has arranged for home health for continued strengthening at home. PT attempted to see the patient during his hospital course but due to transfusions was unable to complete formal evaluation yesterday. Patient felt he was stable for discharge to the home environment with family at this time. On examination the patient is alert, slender with temporal wasting. Respirations are nonlabored and breath sounds are clear. Abdomen is soft and there is no peripheral edema. Cardiac rhythm regular. Stable for discharge at this time. Discharge plans reviewed with oncology. Patient is asked to follow up with Dr. Caruso as previously scheduled and Dr. Greer in 1-2 weeks. >30 minutes spent on patient care and discharge care coordination today on the date of discharge. -- Problems: Code Status Do Not Resuscitate Home Meds Active Scripts Oseltamivir Phosphate (Oseltamivir Phosphate) 30 Mg Capsule, 30 MG PO BID for influenza, #5 CAP Prov:KELI SANTOS MD 12/26/16 Reported Medications Morphine Sulfate (Morphine Sulfate ER) 30 Mg Cap.er.pel, 1 PO Q8H 12/23/16 Famotidine (Famotidine) 20 Mg Tablet, 1 TAB PO BID, TAB 12/23/16 Ondansetron HCl (Zofran) 4 Mg Tablet, 4 MG PO Q8H, TAB 09/30/16 Oxycodone HCl (Oxycodone HCl) 15 Mg Tablet, 15 MG PO Q4HR Y for PAIN 09/30/16 Finasteride (Proscar) 5 Mg Tablet, 1 TAB PO DAILY, TAB 09/30/16 Metoprolol Tartrate (Metoprolol Tartrate) 50 Mg Tablet, 50 MG PO BIDWM, TAB Take 1 tablet, by mouth, 2 times a day with meals. 09/30/16 Albuterol Sulfate (Albuterol Sulfate Hfa) 8.5 Gm Hfa.aer.ad, 2 PUFF INH Q4H, INHALER 01/09/15 Tamsulosin HCl (Flomax) 0.4 Mg Capsule, 0.4 MG PO HS 01/09/15 Discontinued Reported Medications Oxycodone HCl (Oxycontin) 10 Mg Tab.er.12h, 10 MG PO TID, TAB 09/30/16 Famotidine (Famotidine) 10 Mg Tablet, 1 TAB PO HS, TAB 09/30/16 Amlodipine Besylate (Norvasc) 10 Mg Tablet, 10 MG PO DAILY, TAB 09/30/16 Albuterol Sulfate (Albuterol Sulfate) 2.5 Mg/3 Ml Vial.neb, 2.5 MG AEROSOL PRN for ASTHMA 01/09/15 Budesonide/Formoterol Fumarate (Symbicort 160-4.5 Mcg Inhaler) 10.2 Gm Hfa.aer.ad, 2 PUFF PO BID 01/09/15 Face to Face Encounter I met with patient on the day of dismissal and discussed follow up appointments , medications, and safety plan. Discharge Disposition Home with home health Copies To 1: GONZÁLEZ CARUSO Documentation Requirements Chronic Kidney Disease Stage of CKD: Stage 2 GFR 60-89 Anemia Anemia Acuity: Chronic BMI Low or High Assoc. dx for low or high BMI: Underweight BMI 19 KELI SANTOS MD Dec 26, 2016 16:41
== END 2016-12-26 14:57 | disposition home health service (06) | DRG 153 ==
LOC: MED 18:20 → OBSVTOIN 12-24 13:26
PROVIDERS: ADMIT Internal Medicine; ATTEND Internal Medicine
PROC: 30233N1 Transfusion of Nonautologous Red Blood Cells into Peripheral Vein, Percutaneous Approach (ICD-10-PCS; principal; 2016-12-25)
DX: J11.1 Influenza due to unidentified influenza virus with other respiratory manifestations (principal); C64.1 Malignant neoplasm of right kidney, except renal pelvis; C79.9 Secondary malignant neoplasm of unspecified site; E87.1 Hypo-osmolality and hyponatremia; J67.0 Farmer's lung; I12.9 Hypertensive chronic kidney disease with stage 1 through stage 4 chronic kidney disease, or unspecified chronic kidney disease; N18.2 Chronic kidney disease, stage 2 (mild); D51.9 Vitamin B12 deficiency anemia, unspecified; Z66 Do not resuscitate; G89.29 Other chronic pain; D72.819 Decreased white blood cell count, unspecified; Z79.899 Other long term (current) drug therapy; Z87.891 Personal history of nicotine dependence
CPT/HCPCS: 36415; 80048; 80053; 80069; 85007; 85014; 85018; 85027; 86850; 86900; 86901; 86920; 86922; 90732; 94640; 96360; 96361; 99218